=== PATIENT | female | born 1950 | race Caucasian/White ===

== ENCOUNTER → 2021-11-01 00:01 | Outpatient (BNVA) | payer MEDICARE, SELFPAY | PROVIDERS: Visit Provider Emergency Medicine | DX: Z20.822 Contact with and (suspected) exposure to COVID-19 (principal); R26.81 Unsteadiness on feet; J00 Acute nasopharyngitis [common cold]; J40 Bronchitis, not specified as acute or chronic; Z86.73 Personal history of transient ischemic attack (TIA), and cerebral infarction without residual deficits | CPT/HCPCS: 87635 ==

== ENCOUNTER → 2024-03-15 10:23 | Outpatient (BNVA) | payer MEDICARE, SELFPAY | PROVIDERS: PCP Family Medicine; Visit Provider Family Medicine | DX: I10 Essential (primary) hypertension (principal); E78.5 Hyperlipidemia, unspecified | CPT/HCPCS: 80053; 80061; 84443 ==

== ENCOUNTER → 2024-06-07 10:51 | Outpatient (BNVA) | payer MEDICARE, SELFPAY | PROVIDERS: PCP Family Medicine; Visit Provider Family Medicine | DX: Z79.4 Long term (current) use of insulin (principal); E11.9 Type 2 diabetes mellitus without complications; E11.65 Type 2 diabetes mellitus with hyperglycemia | CPT/HCPCS: 82043; 83036 ==

== ENCOUNTER → 2024-08-31 10:17 | Outpatient (BNVA) | payer MEDICARE, SELFPAY | PROVIDERS: PCP Family Medicine; Visit Provider Family Medicine | DX: Z79.4 Long term (current) use of insulin (principal); E11.65 Type 2 diabetes mellitus with hyperglycemia | CPT/HCPCS: 83036 ==

== ENCOUNTER 2024-12-18 11:11 | Emergency (ER) | payer MEDICARE, SELFPAY ==
[2024-12-18 11:16] VITALS: BP 151/87; PULSE 84; RESP 17; TEMP 36.8; O2SAT 96; BMI 26.5
--- OUTSIDE RECORDS SUMMARY | 2024-12-18 11:18 | XMS_ITS | Encounter Summary ---
Author Organization [facility] Address [address] [place] [address] Care Team Providers Care Clinical Documentation Manager Name Role Phone Shannon Mcnair MD Primary Care Provider +1- [phone] Encounter Details Date Type Department Care Team (Latest Contact Info) Description 05/19/2000 Outpatient Historical [facility]- [address] Entrance B, 3rd [place] [phone] Chirag Moreno MD [address] [phone] Female stress incontinence (Primary Dx); Urinary frequency Social History Tobacco Use Types Packs/Day Years Used Date Smoking Tobacco: Never Assessed Comments Unknown Sex and Gender Information Value Date Recorded Sex Assigned at Not on file 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
--- OUTSIDE RECORDS SUMMARY | 2024-12-18 11:18 | XMS_ITS | Encounter Summary ---
Author Organization [facility] Address [address] [facility] Attn: [place] [address] Care Team Providers Care Pastoral Assistant Name Role Phone Shannon Mcnair MD Primary Care Provider +1- [phone] Encounter Details Date Type Department Care Team (Late st Contact Info) Description 05/19/2000 Outpatient Historical Chirag Moreno MD [address] [phone] Social History Tobacco Use Types Packs/Day Years Used Date Smoking Tobacco: Never Assessed Comments Unknown Sex and Gender Information Value Date Recorded Sex Assigned at Not on file 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
--- OUTSIDE RECORDS SUMMARY | 2024-12-18 11:18 | XMS_ITS | Encounter Summary ---
Author Organization [facility] Address [address] [place] [address] Care Team Providers Care Crowning Hammer Operator Name Role Phone Shannon Mcnair MD Primary Care Provider +1- [phone] Encounter Details Date Type Department Care Team (Latest Contact Info) Description 08/20/2002 Outpatient Historical [facility]on Geraldine [address] [place] [address] Non-Staff, Physician NO ADDRESS ON FILE SCREENING MAMM-MAILG NEOPL-OTHER (Primary Dx) Social History Tobacco Use Types Packs/Day Years Used Date Smoking Tobacco: Never Assessed Comments Unknown Sex and Gender Information Value Date Recorded Sex Assigned at Not on file 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
--- OUTSIDE RECORDS SUMMARY | 2024-12-18 11:18 | XMS_ITS | Encounter Summary ---
Author Organization [facility] Address [address] [place] [address] Care Team Providers Care Data Transcriber Name Role Phone Shannon Mcnair MD Primary Care Provider +1- [phone] Encounter Details Date Type Department Care Team (Latest Contact Info) Description 04/25/2000 Outpatient Historical [facility]- [address] Entrance B, 3rd [place] [phone] Chirag Moreno MD [address] [phone] Hematuria (Primary Dx); Mixed incontinence urge and stress (male)(female) Social History Tobacco Use Types Packs/Day Years Used Date Smoking Tobacco: Never Assessed Comments Unknown Sex and Gender Information Value Date Recorded Sex Assigned at Not on file 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
--- OUTSIDE RECORDS SUMMARY | 2024-12-18 11:18 | XMS_ITS | Encounter Summary ---
Author Organization [facility] Address [address] [place] [address] Care Team Providers Care Salvage Inspector Name Role Phone Shannon Mcnair MD Primary Care Provider +1- [phone] Encounter Details Date Type Department Care Team (Latest Contact Info) Description 11/04/2005 Outpatient Historical [facility] [address] 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
--- OUTSIDE RECORDS SUMMARY | 2024-12-18 11:18 | XMS_ITS | Encounter Summary ---
Author Organization [facility] Address [address] [place] [address] Care Team Providers Care Senior Ui Ux Developer Name Role Phone Shannon Mcnair MD Primary Care Provider +1- [phone] Encounter Details Date Type Department Care Team (Latest Contact Info) Description 06/03/2000 Outpatient Historical [facility]- [address] Entrance B, 3rd [place] [address] Chirag Moreno MD [address] [phone] Female stress incontinence (Primary Dx) Social History Tobacco Use Types Packs/Day Years Used Date Smoking Tobacco: Never Assessed Comments Unknown Sex and Gender Information Value Date Recorded Sex Assigned at Not on file 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
--- OUTSIDE RECORDS SUMMARY | 2024-12-18 11:18 | XMS_ITS | Encounter Summary ---
Author Organization [facility] Address [address] [place] [address] Care Team Providers Care Glove Boarder Name Role Phone Shannon Mcnair MD Primary Care Provider +1- [phone] Encounter Details Date Type Department Care Team (Latest Contact Info) Description 10/10/2005 Outpatient Historical [facility] [address] [place] [address] AMBULANCE, [facility] Pain in Soft Tissues of Limb (Primary Dx) Social History Tobacco Use Types Packs/Day Years Used Date Smoking Tobacco: Never Assessed Comments Unknown Sex and Gender Information Value Date Recorded Sex Assigned at Not on file 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
--- OUTSIDE RECORDS SUMMARY | 2024-12-18 11:18 | XMS_ITS | Encounter Summary ---
Author Organization [facility] Address [address] [place] [address] Care Team Providers Care Supervisor Mixing Name Role Phone Shannon Mcnair MD Primary Care Provider +1- [phone] Encounter Details Date Type Department Care Team (Late st Contact Info) Description 02/22/2005 Outpatient Historical [facility] 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
--- OUTSIDE RECORDS SUMMARY | 2024-12-18 11:18 | XMS_ITS | Encounter Summary ---
Author Organization [facility] Address [address] [facility] Attn: [place] [address] Care Team Providers Care Equipment Operat0R Name Role Phone Shannon Mcnair MD Primary Care Provider +1- [phone] Encounter Details Date Type Department Care Team (Late st Contact Info) Description 04/22/2000 Outpatient Historical Amanuel Manning, DO [address] [place] [address] Social History Tobacco Use Types Packs/Day Years Used Date Smoking Tobacco: Never Assessed Comments Unknown Sex and Gender Information Value Date Recorded Sex Assigned at Not on file 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
--- OUTSIDE RECORDS SUMMARY | 2024-12-18 11:18 | XMS_ITS | Encounter Summary ---
Author Organization [facility] Address [address] [place] [address] Care Team Providers Care Associate Accountant Name Role Phone Shannon Mcnair MD Primary Care Provider +1- [phone] Encounter Details Date Type Department Care Team (Latest Contact Info) Description 11/04/2005 Outpatient Historical [facility] [address] [place] [address] AMBULANCE, [facility] Poisoning by Unspecified Drug or Medicinal Substance (Primary Dx) Social History Tobacco Use Types Packs/Day Years Used Date Smoking Tobacco: Never Assessed Comments Unknown Sex and Gender Information Value Date Recorded Sex Assigned at Not on file 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
--- OUTSIDE RECORDS SUMMARY | 2024-12-18 11:18 | XMS_ITS | Encounter Summary ---
Author Organization [facility] Address [address] [place] [address] Care Team Providers Care Priming Machine Operator Name Role Phone Shannon Mcnair MD Primary Care Provider +1- [phone] Encounter Details Date Type Department Care Team (Latest Contact Info) Description 06/17/2005 Outpatient Historical [facility] [address] [place] [address] AMBULANCE, [facility] NAUSEA WITH VOMITING (Primary Dx) Social History Tobacco Use Types Packs/Day Years Used Date Smoking Tobacco: Never Assessed Comments Unknown Sex and Gender Information Value Date Recorded Sex Assigned at Not on file 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
--- OUTSIDE RECORDS SUMMARY | 2024-12-18 11:18 | XMS_ITS | Encounter Summary ---
Author Organization [facility] Address [address] [place] [address] Care Team Providers Care Tobacco Buyer Name Role Phone Shannon Mcnair MD Primary Care Provider +1- [phone] Encounter Details Date Type Department Care Team (Late st Contact Info) Description 06/07/2002 Emergency [facility] Emergency Department [address] [place] [address] Wesley Camacho MD NO ADDRESS ON FILE CHEST PAIN NOS (Primary Dx) Social History Tobacco Use Types Packs/Day Years Used Date Smoking Tobacco: Never Assessed Comments Unknown Sex and Gender Information Value Date Recorded Sex Assigned at Not on file 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
--- OUTSIDE RECORDS SUMMARY | 2024-12-18 11:18 | XMS_ITS | Encounter Summary ---
Author Organization [facility] Address [address] [place] [address] Care Team Providers Care Box Truck Washer Name Role Phone Shannon Mcnair MD Primary Care Provider +1- [phone] Encounter Details Date Type Department Care Team (Late st Contact Info) Description 11/04/2005 Emergency [facility] Emergency Department [facility] [place] [phone] Onofre Gramajo MD [address] [place] [address] Abdominal Pain, Unspecified Site (Primary Dx) Social History Tobacco Use Types Packs/Day Years Used Date Smoking Tobacco: Never Assessed Comments Unknown Sex and Gender Information Value Date Recorded Sex Assigned at Not on file 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 Gender Identity Not on file Sexual Orientation Not on file documented as of this encounter Plan of Treatment Not on file documented as of this encounter Procedures Procedure Name Priority Date/Time Associated Diagnosis Comments LIPASE Routine 11/04/2005 11:23 PM CDT AMYLASE Routine 11/04/2005 11:23 PM CDT COMPREHENSIVE METABOLIC PANEL Routine 11/04/2005 11:23 PM CDT CBC WITH DIFFERENTIAL Routine 11/04/2005 11:22 PM CDT documented in this encounter Results * LIPASE (11/04/2005 11:23 PM CDT) LIPASE 28 6 - 51 U/L INTERFACE SYSTEM Comment: As of 05 the [facility] has changed testing methods. The new reference range is 6-51 The old referance range was 23-300 11/04/2005 11:2 3 PM CDT us Onofre Gramajo MD CHEMISTRY ORDERABLES Final Res ult Performing Organization Address [facility] Phone Number INTERFACE SYSTEM Refer to clinic/hospital department * AMYLASE (11/04/2005 11:23 PM CDT) AMYLASE 54 20 - 104 U/L INTERFACE SYSTEM Comment: As of 05 the [facility] has changed testing methods. The new reference range is 20-104 The old referance range was 30-120 Specimen moderately hemolyzed 11/04/2005 11:2 3 PM CDT us Onofre Gramajo MD CHEMISTRY ORDERABLES Final Res ult Performing Organization Address [facility] Phone Number INTERFACE SYSTEM Refer to clinic/hospital department * (ABNORMAL) COMPREHENSIVE METABOLIC PANEL (11/04/2005 11:23 PM CDT) GLUCOSE 130(H) 70 - 110 mg/dL INTERFACE SYSTEM BUN 10 7 - 17 mg/dL INTERFACE SYSTEM CREATININE 0.6(L) 0.7 - 1.2 mg/dL INTERFACE SYSTEM SODIUM 143 136 - 145 mEq/L INTERFACE SYSTEM POTASSIUM 4.6 3.5 - 5.0 mEq/L INTERFACE SYSTEM Comment:Specimen moderately hemolyzed CHLORIDE 107 95 - 110 mEq/L INTERFACE SYSTEM CO2 24 22 - 32 mmol/l INTERFACE SYSTEM ANION GAP 17 9 - 20 mEq/L INTERFACE SYSTEM OSMOLALITY, CALCULATED 295 275 - 295 mOsm/Kg INTERFACE SYSTEM CALCIUM 9.5 8.4 - 10.5 mg/dL INTERFACE SYSTEM TOTAL PROTEIN 7.9 6.3 - 8.2 g/dL INTERFACE SYSTEM ALBUMIN 4.4 3.5 - 5.0 g/dL INTERFACE SYSTEM GLOBULIN (CALC) 3.5 2.4 - 3.9 g/dL INTERFACE SYSTEM ALBUMIN/GLOBULIN RATIO 1.3 1.0 - 2.3 INTERFACE SYSTEM ALKALINE PHOSPHATASE 124(H) 25 - 100 U/L INTERFACE SYSTEM Comment: As of 05 the [facility] has changed testing methods. The new reference range is 25-100 The old referance range was 38-126 AST 55(H) 8 - 33 U/L INTERFACE SYSTEM Comment: As of 05 the [facility] has changed testing methods. The new reference range is 8-33 The old referance range was Males 17-59 Females 14-36 ALT 35 4 - 36 IU/L INTERFACE SYSTEM Comment: As of 05 the [facility] has changed testing methods. The new reference range is 4-36 The old referance range was Males 21-72 Females 9-52 BILIRUBIN TOTAL 0.3 0.3 - 1.2 mg/dL INTERFACE SYSTEM Comment: As of 05 the [facility] has changed testing methods. The new reference range is 0.3-1.2 The old referance range was 0.2-1.4 11/04/2005 11:2 3 PM CDT us Onofre Gramajo MD CHEMISTRY ORDERABLES Final Res ult INTERFACE SYSTEM Refer to clinic/hospital department * (ABNORMAL) CBC WITH DIFFERENTIAL (11/04/2005 11:22 PM CDT) WBC 8.5 4.8 - 10.8 K/ul INTERFACE SYSTEM RBC 4.33 4.20 - 5.40 Mil/ul INTERFACE SYSTEM HEMOGLOBIN 14.2 12.0 - 16.0 g/dL INTERFACE SYSTEM HEMATOCRIT 40.9 36.0 - 46.0 % INTERFACE SYSTEM MCV 94.5 84.0 - 103.0 Fl INTERFACE SYSTEM MCH 32.8 27.0 - 34.0 pg INTERFACE SYSTEM MCHC 34.7 30.0 - 35.0 g/dL INTERFACE SYSTEM RDW 12.2 11.0 - 14.5 % INTERFACE SYSTEM PLATELETS 381 140 - 440 K/ul INTERFACE SYSTEM MPV 9.3 8.9 - 12.8 Fl INTERFACE SYSTEM NEUTROPHILS 82.1(H) 42.2 - 75.2 % INTERFACE SYSTEM LYMPHOCYTES 12.9(L) 24.0 - 44.0 % INTERFACE SYSTEM MONOCYTES 4.6 2.0 - 10.0 % INTERFACE SYSTEM EOSINOPHILS 0.2 0.0 - 7.0 % INTERFACE SYSTEM BASOPHILS 0.2 0.0 - 1.0 % INTERFACE SYSTEM NEUTROPHIL ABSOLUTE 7.0 2.0 - 8.0 K/uL INTERFACE SYSTEM LYMPHOCYTE ABSOLUTE 1.1(L) 1.2 - 4.0 K/ul INTERFACE SYSTEM MONOCYTE ABSOLUTE 0.4 0.1 - 0.6 K/ul INTERFACE SYSTEM EOSINOPHIL ABSOLUTE 0.0 0.0 - 0.7 K/ul INTERFACE SYSTEM BASOPHILS ABSOLUTE 0.0 0.0 - 0.2 K/ul INTERFACE SYSTEM 11/04/2005 11:2 2 PM CDT us Onofre Gramajo MD HEMATOLOGY ORDERABLES Final Re sult INTERFACE SYSTEM Refer to clinic/hospital department documented in this encounter Visit Diagnoses Diagnosis Abdominal pain, unspecified site- Primary documented in this encounter Care Teams Box Truck Washer Relationship Specialty Start Date End Date Shannon Mcnair MD [address] [place] [address] PCP - General Family Practice 06/11/10 documented as of this encounter
--- OUTSIDE RECORDS SUMMARY | 2024-12-18 11:18 | XMS_ITS | Encounter Summary ---
Author Organization [facility] Address [address] [facility] Attn: [place] [address] Care Team Providers Care Shank Breaker Name Role Phone Shannon Mcnair MD Primary Care Provider +1- [phone] Encounter Details Date Type Department Care Team (Late st Contact Info) Description 05/23/2000 Inpatient Historical Chirag Moreno MD [address] [phone] Social History Tobacco Use Types Packs/Day Years Used Date Smoking Tobacco: Never Assessed Comments Unknown Sex and Gender Information Value Date Recorded Sex Assigned at Not on file 

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
--- OUTSIDE RECORDS SUMMARY | 2024-12-18 11:18 | XMS_ITS | Encounter Summary ---
Author Organization [facility] Address [address] [place] [address] Care Team Providers Care Roll Plugger Machine Operator Name Role Phone Shannon Mcnair MD Primary Care Provider [phone]- [phone] Encounter Details Date Type Department Care Team (Latest Contact Info) Description 06/27/2004 Outpatient Historical [facility] [address] [place] [address] AMBULANCE, [facility] CHEST PAIN NOS (Primary Dx) Social History Tobacco Use Types Packs/Day Years Used Date Smoking Tobacco: Never Assessed Comments Unknown Sex and Gender Information Value Date Recorded Sex Assigned at Not on file Legal Sex Female 6:46 AM DEVELOPMENT ADVISOR Gender Identity Not on file Sexual Orientation Not on file documented as of this encounter Plan of Treatment Not on file documented as of this encounter Visit Diagnoses Diagnosis Chest pain, unspecified- Primary documented in this encounter Care Teams Roll Plugger Machine Operator Relationship Specialty Start Date End Date Shannon Mcnair MD [address] [place] [address] PCP - General Family Practice 06/11/10 documented as of this encounter
--- OUTSIDE RECORDS SUMMARY | 2024-12-18 11:18 | XMS_ITS | Encounter Summary ---
Author Organization [facility] Address [address] [place] [address] Care Team Providers Care Operation Research Analyst Name Role Phone Shannon Mcnair MD Primary Care Provider [phone] Encounter Details Date Type Department Care Team (Late st Contact Info) Description 12/14/2024 External Device Data ST[place] ABSTRACTION Provider, Abstract NO ADDRESS ON FILE Social History Tobacco Use Types Packs/Day Years Used Date Smoking Tobacco: Never Alcohol Use Standard Drinks/Week Comments No 0 (1 standard drink = 0.6 oz pur e alcohol) Comments No Sex and Gender Information Value Date Recorded Sex Assigned at Not on file Legal Sex Female 1:48 PM HIGH SCHOOL ACADEMIC COACH Gender Identity Not on file Sexual Orientation Not on file documented as of this encounter Plan of Treatment Upcoming Encounters Date Type Department Care Team (Late st Contact Info) Description 04/06/2025 9:20 AM HIGH SCHOOL ACADEMIC COACH Office Visit [facility] Rheumatology- [place] [address] [place] [address] Matt Cortes MD [address] [place] [phone] documented as of this encounter Visit Diagnoses Not on filedocumented in this encounter Care Teams Operation Research Analyst Relationship Specialty Start Date End Date Shannon Mcnair MD [address] [place] [address] PCP - General 07/27/20 documented as of this encounter
--- OUTSIDE RECORDS SUMMARY | 2024-12-18 11:18 | XMS_ITS | Encounter Summary ---
Author Organization [facility] Address [address] [place] [address] Care Team Providers Care Resolution Rep Name Role Phone Shannon Mcnair MD Primary Care Provider [phone] Encounter Details Date Type Department Care Team (Latest Contact Info) Description 09/06/2006 Outpatient Historical [facility] Ambulance [address] [place] [address] AMBULANCE, [facility] Unspecified Essential Hypertension (Primary Dx) Social History Tobacco Use Types Packs/Day Years Used Date Smoking Tobacco: Never Assessed Comments Unknown Sex and Gender Information Value Date Recorded Sex Assigned at Not on file Legal Sex Female 6:46 AM JOCKEY'S AGENT Gender Identity Not on file Sexual Orientation Not on file documented as of this encounter Plan of Treatment Not on file documented as of this encounter Visit Diagnoses Diagnosis Unspecified essential hypertension- Primary documented in this encounter Care Teams Resolution Rep Relationship Specialty Start Date End Date Shannon Mcnair MD [address] [place] [address] PCP - General Family Practice 06/11/10 documented as of this encounter
--- OUTSIDE RECORDS SUMMARY | 2024-12-18 11:18 | XMS_ITS | Encounter Summary ---
Author Organization [facility] Address [address] [place] [address] Care Team Providers Care Cane Piler Name Role Phone Shannon Mcnair MD Primary Care Provider [phone] Encounter Details Date Type Department Care Team (Latest Contact Info) Description 08/20/2002 Outpatient Historical [facility] [place] [address] [place] [address] Carlton Gee MD NO ADDRESS ON FILE SCREENING MAMM-MAILG NEOPL-OTHER (Primary Dx) Social History Tobacco Use Types Packs/Day Years Used Date Smoking Tobacco: Never Assessed Comments Unknown Sex and Gender Information Value Date Recorded Sex Assigned at Not on file Legal Sex Female 6:46 AM SALES AND OPERATIONS TRAINEE Gender Identity Not on file Sexual Orientation Not on file documented as of this encounter Plan of Treatment Not on file documented as of this encounter Visit Diagnoses Diagnosis Other screening mammogram- Primary documented in this encounter Care Teams Cane Piler Relationship Specialty Start Date End Date Shannon Mcnair MD [address] [place] [address] PCP - General Family Practice 06/11/10 documented as of this encounter
--- OUTSIDE RECORDS SUMMARY | 2024-12-18 11:18 | XMS_ITS | Encounter Summary ---
Author Organization [facility] Address [address] [place] [address] Care Team Providers Care Educational Guidance Counselor Name Role Phone Shannon Mcnair MD Primary Care Provider [phone] Encounter Details Date Type Department Care Team (Latest Contact Info) Description 07/14/2000 Outpatient Historical [facility] Urology- [address]tr[address], 3[address] [place] [address] Chirag Moreno MD [address] [address] Mixed incontinence urge and stress (male)(female) (Primary Dx) Social History Tobacco Use Types Packs/Day Years Used Date Smoking Tobacco: Never Assessed Comments Unknown Sex and Gender Information Value Date Recorded Sex Assigned at Not on file Legal Sex Female 6:46 AM GAS PLANT OPERATOR Gender Identity Not on file Sexual Orientation Not on file documented as of this encounter Plan of Treatment Not on file documented as of this encounter Visit Diagnoses Diagnosis Mixed incontinence urge and stress (male)(female)- Primary documented in this encounter Care Teams Educational Guidance Counselor Relationship Specialty Start Date End Date Shannon Mcnair MD [address] [place] [address] PCP - General Family Practice 06/11/10 documented as of this encounter
--- OUTSIDE RECORDS SUMMARY | 2024-12-18 11:18 | XMS_ITS | Encounter Summary ---
Author Organization [facility] Address [address] [place] [address] Care Team Providers Care Fitness Specialist Name Role Phone Shannon Mcnair MD Primary Care Provider [phone] Encounter Details Date Type Department Care Team (Latest Contact Info) Description 05/26/2000 Outpatient Historical [facility] Urology- [address]tr[address], 3rd [place] [address] Chirag Moreno MD [address] [phone] Female stress incontinence (Primary Dx) Social History Tobacco Use Types Packs/Day Years Used Date Smoking Tobacco: Never Assessed Comments Unknown Sex and Gender Information Value Date Recorded Sex Assigned at Not on file Legal Sex Female 6:46 AM SPIN TABLE OPERATOR Gender Identity Not on file Sexual Orientation Not on file documented as of this encounter Plan of Treatment Not on file documented as of this encounter Visit Diagnoses Diagnosis Female stress incontinence- Primary documented in this encounter Care Teams Fitness Specialist Relationship Specialty Start Date End Date Shannon Mcnair MD [address] [place] [address] PCP - General Family Practice 06/11/10 documented as of this encounter
--- OUTSIDE RECORDS SUMMARY | 2024-12-18 11:18 | XMS_ITS | Clinical Summary ---
Author Organization [facility] Address [address] [place] [address] Care Team Providers Care Account Specialist Name Role Phone Shannon Mcnair MD Primary Care Provider [phone]- [phone] Allergies Active Allergy Reactions Criticality Noted Date Comments Codeine Nausea and Vomiting Low 02/08/2011 Iodinated Contrast Media Other (See Comments) 03/26/2018 Per pt she can't remember what type or reaction Medications diclofenac sodium (VOLTAREN) 1 % gel Apply 2 Grams to affected area 4 times daily. 200 Gram 1 9 Active folic acid (FOLVITE) 1 mg tablet Take 1 tablet by mouth once daily 90 Tablet 0 1 Active aspirin (FLORENTINO CHEWABLE) 81 mg Tablet, Chewable Take 1 Tablet (81 mg) by mouth daily with breakfast. 90 Tablet 2 Active lisinopriL (PRINIVIL) 10 mg tablet 8 Active atorvastatin (LIPITOR) 40 mg tablet 8 Active glimepiride (AMARYL) 4 mg tablet 8 Active metoprolol succinate (TOPROL XL) 100 mg Extended Release 24 hour tablet 8 Active aspirin (ECOTRIN EC) 81 mg Tablet, Delayed Release (E.C.) Take 81 mg by mouth daily. 8 Active insulin aspart (NovoLOG) 100 unit/mL injection Inject 40 Units by subcutaneous injection daily. Active traMADoL (ULTRAM) 50 mg tabletIndicatio ns:Inflammatory arthritis Take 1 Tablet (50 mg) by mouth 1 time daily as needed for Pain. 30 Tablet 4 Active insulin degludec (Tresiba FlexTouch U-100) 100 unit/mL pen syringe Inject 40 Units by subcutaneous injection daily at bedtime. Active methotrexate (RHEUMATREX) 2.5 mg Tablet TAKE 5 TABLETS BY MOUTH ONCE A WEEK 20 Tablet 2 5 Active ondansetron (ZOFRAN ODT) 4 mg Tablet, Rapid Dissolve Take 1 Tablet (4 mg) by mouth every 8 hours as needed for Nausea/Emesis. Dissolve tablet on top of tongue, then swallow with saliva. 21 Tablet 5 Active Active Problems Problem Noted Date Diagnosed Date Acute cystitis 09/06/2021 Suspected cerebrovascular accident (CVA) 022 Type 2 diabetes mellitus wit hout complication, without long-term current use of insulin 03/26/2018 Spondyloarthropathy 06/11/2010 Overview (08/17/2020): Episodes of painful dactylitis of the toes, monoarticular arthritis predominant in feet (except right #2-3 MCPs), left Achilles, left heel and ? sacroiliac jts. Resolved Problems Problem Noted Date Diagnosed Date Resolved Date Medication monitoring encoun ter (Sulfasalazine) 06/11/2010 06/01/2018 Encounters Date Type Department Care Team Description 12/14/2024 External Device Data STL ABSTRACTION Provider, Abstract 11/24/2024 External Device Data STL ABSTRACTION Provider, Abstract 11/09/2024 External Device Data [facility] ABSTRACTION Provider, Abstract 11/09/2024 External Device Data ST[facility] ABSTRACTION Provider, Abstract 09/21/2024 External Device Data STL ABSTRACTION Provider, Abstract from Last 3 Months Immunizations Immunization Administration Dates Next Due (PREVNAR 13)(6 WKS UP) PNEUM OCOCCAL CONJUGATE (PCV13) 0.5 ML, IM 03/21/2010 (SPIKEVAX) (12 YRS UP PRIMAR Y SERIES) COVID-19 VACCINE - MRNA-[id number](PF) 100 MCG/0.5 ML IM SUSP 07/20/2020,06/22/2020 Influenza Seasonal Unspecified Formulation IM ,02/02/2010 Family History Medical History Relation Name Comments Healthy Brother 1 Healthy Brother 2 Healthy Daughter Colon Cancer Mother Heart Disease Mother Healthy Sister Relation Name Status Comments Brother 1 Alive Brother 2 Alive Daughter Alive Father Mother Alive Sister Alive Social History Tobacco Use Types Packs/Day Years Used Date Smoking Tobacco: Never Tobacco Cessation:Counseling Given: Not Answered Alcohol Use Standard Drinks/Week Comments No 0 (1 standard drink = 0.6 oz pur e alcohol) Comments No Sex and Gender Information Value Date Recorded Sex Assigned at Not on file Legal Sex Female 1:48 PM CLASSROOM ASSISTANT Gender Identity Not on file Sexual Orientation Not on file Last Filed Vital Signs Vital Sign Reading Time Taken Comments Blood Pressure 168/98 08/13/2024 8:30 PM CDT Pulse 96 08/13/2024 8:30 PM CDT Temperature 36.3 C (97.4 F) 08/13/2024 7:10 PM CDT Respiratory Rate 20 08/13/2024 8:30 PM CDT Oxygen Saturation 93% 08/13/2024 8:30 PM CDT Inhaled Oxygen Concentration - - Weight 65.8 kg (145 lb) 08/13/2024 7:10 PM CDT Height 165.1 cm (5' 5 ) 08/13/2024 7:10 PM CDT Body Mass Index 24.13 08/13/2024 7:10 PM CDT Plan of Treatment Upcoming Encounters Date Type Department Care Team (Late st Contact Info) Description 04/06/2025 9:20 AM CLASSROOM ASSISTANT Office Visit [facility] Rheumatology- [place] [address] [place] [phone] Matt Cortes MD [address] [facility] [address] [place] [phone] Health Maintenance Due Date Last Done Comments DIABETES ANNUAL FOOT EXAM 1968 DIABETES ANNUAL RETINAL EXAM 1968 DIABETES MICROALBUMIN ANNUAL SCREEN 1968 DTAP/TDAP/TD VACCINES (1 - Tdap) 1969 BREAST CANCER SCREENING 1990 COLORECTAL SCREENING 11/01/1995 Colorectal Cancer Screening 11/01/1995 FIT-DNA Q 3 years 11/01/1995 FIT/FOBT Q 1 year 11/01/1995 Flex Sig/CT Colonography Q 5 years 11/01/1995 ZOSTER VACCINE (1 of 2) 2000 RSV VACCINE (60+ or ) (1 - Risk 60-74 years 1-dose series) 2010 OSTEOPOROSIS SCREENING 11/01/2015 LDL CHOLESTEROL ANNUAL 09/05/2022 09/05/2021 DIABETES HBA1C Q 6 MONTHS 05/24/20232022, 09/05/2021, 09/05/2021 COVID-19 Vaccine ( season) 2023 05/03/2021, 07/20/2020, 06/22/2020 INFLUENZA VACCINE (#1) 2024 01/19/2021, 2009 PNEUMOCOCCAL VACCINE 50+ YEARS Completed 11/21/2022 , 03/21/2010 Procedures Procedure Name Priority Date/Time Associated Diagnosis Comments LIPID PANEL Routine 09/05/2021 7:39 PM CDT HEMOGLOBIN A1C Stat 09/05/2021 7:39 PM CDT from Last 3 Months or Most Recently Relevant to Health Maintenance Results * (ABNORMAL) HEMOGLOBIN A1C (09/05/2021 7:39 PM CDT) HEMOGLOBIN A1C 6.6(H) <=5.6 % 09/07/2021 7:17 AM CDT [facility] Spare Backup [facility] EST. AVG GLUCOSE, A1C 143 mg/dL 09/07/2021 7:17 AM CDT [facility] Blood Venipuncture / Unknown 09/05/2021 7:39 PM CDT 09/05/2021 7:44 PM CDT Narrative [facility] Spare Backup [facility] - 09/07/2021 7:17 AM CDT HGB A1C INTERPRETATION NORMAL: <5.7% PRE-DIABETES: 5.7 - 6.4% DIABETES: 6.5% OR GREATER us vIory Luque MD CHEMISTRY ORDERABLES Final Resu lt [facility] CLIA # [id number] [facility] [address] [place] [address] * (ABNORMAL) LIPID PANEL (09/05/2021 7:39 PM CDT) CHOLESTEROL 144 <200 mg/dL 09/06/2021 11:22 AM T [facility] TRIGLYCERIDE 36 <150 mg/dL 09/06/2021 11:22 AM T [facility] HDL 84(H) 40 - 59 mg/dL 09/06/2021 11:22 AM T [facility] LDL CALCULATED 53 <100 mg/dL 09/06/2021 11:22 AM T [facility] NON-HDL CHOLESTEROL 60 <130 mg/dL 09/06/2021 11:22 AM T [facility] Blood Venipuncture / Unknown 09/05/2021 7:39 PM CDT 09/05/2021 7:47 PM CDT Narrative [facility] - 09/06/2021 11:22 AM CDT TOTAL CHOLESTEROL mg/dL Desirable <200 Borderline high 200-239 High >=240 TRIGLYCERIDES mg/dL Normal <150 Borderline high 150-199 High 200-499 Very high >=500 HDL CHOLESTEROL mg/dL Low <40 Normal 40-59 Desirable >=60 NON HDL CHOLESTEROL mg/dL Optimal <130 Near Optimal 130-159 Borderline High 160-189 Very High >=190 CALCULATED LDL mg/dL LDL <70, OPTIMAL if have Atherosclerotic cardiovascular disease (ASCVD) or intermediate or higher (>7.5%) 10 year risk of ASCVD including most adults with diabetes. LDL <100, Optimal in adult patients with low (<7.5%) 10 year ASCVD risk LDL 100-160, Suboptimal LDL >160, High LDL >190, Very high ATPIII Guidelines Reference Ranges for Lipid Panels (NCEP/AMA) . us Ivory Luque MD CHEMISTRY ORDERABLES Final Resu lt [facility] CLIA # [id number] [address] [place] [address] [place] [address] from Last 3 Months or Most Recently Relevant to Health Maintenance Insurance [facility] MEDICARE HMO Advance Directives For more information, please contact: [phone] * Default Full Code - Needs Discussion (Latest Code Status on File) Date Activated Date Inactivated Comments 09/06/2021 5:46 AM 09/07/2021 7:46 PM Care Teams Account Specialist Relationship Specialty Start Date End Date Shannon Mcnair MD [address] [place] [address] PCP - General 07/27/20
--- OUTSIDE RECORDS SUMMARY | 2024-12-18 11:18 | XMS_ITS | Encounter Summary ---
Author Organization [facility] Address [address] [place] [address] Care Team Providers Care Dry Cleaner Name Role Phone Shannon Mcnair MD Primary Care Provider [phone]- [phone] Encounter Details Date Type Department Care Team (Latest Contact Info) Description 06/17/2005 Outpatient Historical [facility] Ambulance [address] [place] [address] AMBULANCE, [facility] HYPERVENTILATION (Primary Dx) Social History Tobacco Use Types Packs/Day Years Used Date Smoking Tobacco: Never Assessed Comments Unknown Sex and Gender Information Value Date Recorded Sex Assigned at Not on file Legal Sex Female 6:46 AM CRIMINALIST TECHNICIAN Gender Identity Not on file Sexual Orientation Not on file documented as of this encounter Plan of Treatment Not on file documented as of this encounter Visit Diagnoses Diagnosis Hyperventilation- Primary documented in this encounter Care Teams Dry Cleaner Relationship Specialty Start Date End Date Shannon Mcnair MD [address] [place] [address] PCP - General Family Practice 06/11/10 documented as of this encounter
--- OUTSIDE RECORDS SUMMARY | 2024-12-18 11:18 | XMS_ITS | Encounter Summary ---
Author Organization [facility] Address [address] [facility] Attn: Epic Prelude ADT [place] [address] Care Team Providers Care Waterproof Coating Machine Tender Name Role Phone Shannon Mcnair MD Primary Care Provider +1- [phone] Encounter Details Date Type Department Care Team (Latest Contact Info) Description 04/23/2001 Emergency Chirag Huynh MD NO ADDRESS ON FILE Social History Tobacco Use Types Packs/Day Years Used Date Smoking Tobacco: Never Assessed Comments Unknown Sex and Gender Information Value Date Recorded Sex Assigned at Not on file Legal Sex Female 6:46 AM AIRCRAFT LAUNCH AND RECOVERY TECHNICIAN Gender Identity Not on file Sexual Orientation Not on file documented as of this encounter Plan of Treatment Not on file documented as of this encounter Visit Diagnoses Not on filedocumented in this encounter Care Teams Waterproof Coating Machine Tender Relationship Specialty Start Date End Date Shannon Mcnair MD [address] [place] [address] PCP - General Family Practice 06/11/10 documented as of this encounter
[2024-12-18 11:39] LABS: Glucose Urine UA 1+ (Normal); Nitrate Urine Positive (Negative); Specific Gravity, Urine 1.019 (1.005-1.030)
[2024-12-18 11:43] LABS: Add Urine Microscopic? YES
[2024-12-18] MEDS: orphenadrine 30 mg/mL Inj 2 mL 60 MG IM (11:51)
[2024-12-18 11:54] LABS: Hematocrit 42.6 % (36-47); Hemoglobin 14.20 g/dL (11.27-16.99); Mean Corpuscular HGB Conc 33.3 g/dL (30-55); Mean Corpuscular Hemoglobin 31.6 pg (27-33); Mean Corpuscular Volume 94.7 fl (85-98); Nucleated Red Blood Cells % 0 %; Platelet Count 184 10^3/cmm (157-399); Red Blood Count 4.50 10^6/uL (3.85-5.65); White Blood Count 5.74 10^3/uL (3.29-11.43)
[2024-12-18 12:00] VITALS: BP 151/87; PULSE 80; O2SAT 94
[2024-12-18 12:10] LABS: Anion Gap 15.5 (5-19); Blood Urea Nitrogen 9 mg/dL (8-23); Calcium 9.3 mg/dL (8.5-10.5); Carbon Dioxide 23 mmol/L (22-29); Chloride 103 mmol/L (98-107); Creatinine Clr Calc Pharmacy 54.9005; Glucose 200 mg/dL (65-115); Osmolality Calculated 290 mOsm/kg (285-295); Potassium 3.5 mmol/L (3.5-5.1); Sodium 138 mmol/L (136-145)
[2024-12-18] MEDS: cefTRIAXone 1,000 MG in water for injection-sterile 2.1 ML 2.1 MG IM (13:01)
[2024-12-18] MEDS: HYDROcodone-acetaminophen 5-325 mg Tablet 1 TAB PO (13:22)
--- NOTE | 2024-12-18 13:22 | W.ED.BACK ---
HPI - Back Pain/Injury General: Chief Complaint: Back Pain/Injury Stated Complaint: low back pain Time Seen by Provider: 12/18/24 11:22 Source: patient and family Mode of arrival: ambulatory Limitations: no limitations History of Present Illness: Left of back pain starting this morning. Patient very uncomfortable, unable to sit still in the car. Mainly hurts in the left low back little bit of tenderness over the lateral left trochanter Related Data Home Medications ?Medication ?Instructions ?Recorded ?Confirmed folic acid 1 mg tablet 1 mg PO DAILY 10/31/21 08/31/24 acyclovir 400 mg tablet 400 mg PO DAILY 02/12/24 08/31/24 aspirin 81 mg tablet,delayed 81 mg PO DAILY 02/12/24 08/31/24 release methotrexate sodium 5 mg tablet 25 mg PO .weekly 02/12/24 08/31/24 tramadol 50 mg tablet 50 mg PO DAILY 02/12/24 08/31/24 Previous Rx's ?Medication ?Instructions ?Recorded blood sugar diagnostic (Accu-Chek #100 ea 02/12/24 Guide test strips) lancets (Accu-Chek Softclix #100 ea 02/12/24 Lancets) pen needle, diabetic 32 gauge x #100 ea 02/12/24 (BD Elana 2nd Gen Pen Needle) dulaglutide 0.75 mg/0.5 mL 0.75 mg (0.5 mL) SUBCUT .qw #2 mL 06/07/24 subcutaneous pen injector (Trulicity) atorvastatin 40 mg tablet 40 mg PO DAILY #90 tabs 08/31/24 dulaglutide 1.5 mg/0.5 mL 1.5 mg (0.5 mL) SUBCUT .qw #2 mL 08/31/24 subcutaneous pen injector (Trulicity) glimepiride 2 mg tablet 4 mg (2 x 2 mg) PO BID #180 tabs 08/31/24 hydrochlorothiazide 12.5 mg tablet 12.5 mg PO DAILY #90 tabs 08/31/24 insulin degludec 100 unit/mL (3 40 unit (0.4 mL) SUBCUT DAILY #45 08/31/24 mL) subcutaneous pen (Tresiba mL FlexTouch U-100 insulin) metoprolol succinate 25 mg 25 mg PO DAILY #90 tabs 05/13/25 tablet,extended release 24 hr omeprazole 20 mg capsule,delayed 20 mg PO DAILY #90 caps 08/31/24 release baclofen 10 mg tablet 10 mg PO BID 5 days #10 tabs 12/18/24 nitrofurantoin 100 mg PO BID 5 days #10 caps 12/18/24 monohydrate/macrocrystals 100 mg capsule (Macrobid) phenazopyridine 100 mg tablet 100 mg PO Q8H PRN bladder spasms 2 12/18/24 days #6 tabs Allergies Allergy/AdvReac Type Severity Reaction Status Date / Time Penicillins Allergy Intermediate unknown Verified 08/31/24 09:37 Iodinated Contrast Media Allergy ALGY-Rash Verified 10/25/24 09:29 Review of Systems General: Reports: 10 or more systems reviewed and unremarkable except in HPI and below PFSH ED PFSH: Medical History (Updated 12/18/24 @ 13:23 by Bola Pena MD) Fibromyalgia Type 2 diabetes mellitus, with long-term current use of insulin Diabetes type 2, uncontrolled Rheumatoid arthritis sees [facility] rheumatology GERD without esophagitis Hx of completed stroke Left MCA territory on MRI Expressive aphasia Hyperlipidemia LDL goal <70 Hypertension, essential Uncontrolled type 2 diabetes mellitus, with long-term current use of insulin Unsteady gait Surgical History History of bladder suspension procedure Hx of cholecystectomy Hx of colonoscopy 8.5.24--tubular adenoma; f/u Q5yrs as mother had colon CA Hx of appendectomy Hx of hysterectomy with BSO--had cysts on ovaries Family History Father No problems noted. 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 Physical Exam Const: COMMON NORMALS: no acute distress, average body habitus, patient oriented x3, healthy appearing, alert and well nourished GENERAL APPEARANCE: well kempt and well developed HENMT: COMMON NORMALS: normocephalic, atraumatic, external ears normal and moist oral mucous membranes HEAD & SCALP: normocephalic and atraumatic EXTERNAL EAR: Yes external ears normal Eye: COMMON NORMALS: Equal, round and reactive pupils present, EOMs intact bilaterally and conjunctivae normal CONJUNCTIVA: Yes conjunctivae normal PUPIL: Yes Equal, round and reactive pupils present Neck/C-Spine: COMMON NORMALS: full ROM, no lymphadenopathy and supple Chest: CHEST: Yes Symmetrical chest wall rise and No Surgical scars present (Chest) Resp: COMMON NORMALS: normal respiratory effort, No retractions, No use of accessory muscles and clear to auscultation bilaterally AUSCULTATION: clear to auscultation bilaterally Cardio: COMMON NORMALS: regular rate, regular rhythm, S1 normal heart sound present, S2 normal heart sound present, No gallops present (Cardio), No clicks present (Cardio), No murmurs present (Cardio) and No rub (Cardio) RATE: regular rate RHYTHM: regular rhythm HEART SOUNDS: S1 normal heart sound present, S2 normal heart sound present and no murmurs PERIPHERAL PULSES: other (Radial pulses 2+ and symmetric) GI: COMMON NORMALS: Soft to palpation, non-tender and no masses INSPECTION: No abdominal distension PALPATION: Yes Soft to palpation, No Guarding due to palpation present (GI) and No Rebound tenderness present : COMMON NORMALS: Yes no CVA tenderness BLADDER/KIDNEY EXAM: Yes no CVA tenderness Back/Pelvis: COMMON NORMALS: no CVA tenderness Extremity: COMMON NORMALS: normal to inspection, full ROM, capillary refill normal and no clubbing, cyanosis or edema NARRATIVE EXTREMITY EXAM: Left lower back tenderness no midline tenderness no weakness. No pain with internal/external rotation of the hip. Some mild tenderness over the lateral surface of the left greater trochanter. No guarding on exam but patient reports a greater amount of tenderness in the musculoskeletal soft tissues of the left low back Neuro: COMMON NORMALS: patient oriented x3 SENSORIUM/ORIENTATION: Yes alert Psych: APPEARANCE: Yes well kempt Skin: COMMON NORMALS: no rashes or lesions noted, no wounds, turgor normal and no jaundice GENERAL SKIN EXAM: no rashes or lesions noted and turgor normal Course Vital Signs: Vital signs: Vital Signs Temperature 98.2 F 08/30/25 11:16 Pulse Rate 80 08/30/25 12:00 Respiratory Rate 17 12/18/24 11:16 Blood Pressure 151/87 12/18/24 12:00 Pulse Oximetry 94 12/18/24 12:00 Oxygen Delivery Me thod Room Air 12/18/24 12:00 MDM - Back Pain/Injury Medical Decision Making Patient with left lower back pain rating to the hip and down to the knee. Has very mild tenderness over the lateral bursal area of the trochanter. More left low back tenderness when pressed. However not much guarding. CBC and BMP are unremarkable however patient does have UA with nitrites and 4+ bacteria. It was a dirty catch however 4+ bacteria is still excessive despite this. Patient will be treated for UTI and musculoskeletal pain. Medical Records I reviewed the patient's medical records. Labs I reviewed the patient's lab results. 12/18/24 11:49 12/18/24 11:49 Laboratory Results WBC 5.74 10^3/uL (3.29-11.43) 12/18/24 11:49 RBC 4.50 10^6/uL (3.85-5.65) 12/18/24 11:49 Hgb 14.20 g/dL (11.27-16.99) 12/18/24 11:49 Hct 42.6 % (36-47) 12/18/24 11:49 MCV 94.7 fl (85-98) 12/18/24 11:49 MCH 31.6 pg (27-33) 12/18/24 11:49 MCHC 33.3 g/dL (30-55) 12/18/24 11:49 RDW 12.5 % (12.1-15.1) 12/18/24 11:49 Plt Count 184 10^3/cmm (157-399) 12/18/24 11:49 MPV 10.0 fL (7.4-10.4) 12/18/24 11:49 Neut % (Auto) 67.2 % 12/18/24 11:49 Lymph % (Auto) 25.6 % 12/18/24 11:49 Henry % (Auto) 5.6 % 12/18/24 11:49 Eos % (Auto) 0.9 % 12/18/24 11:49 Baso % (Auto) 0.5 % 12/18/24 11:49 Neut # (Auto) 3.86 10^3/uL (1.8-7.7) 12/18/24 11:49 Lymph # (Auto) 1.5 10^3/uL (0.8-4.8) 12/18/24 11:49 Henry # (Auto) 0.3 10^3/uL (0.2-0.9) 12/18/24 11:49 Eos # (Auto) 0.1 10^3/uL (0.0-0.8) 12/18/24 11:49 Baso # (Auto) 0.0 10^3/uL (0.0-0.1) 12/18/24 11:49 Nucleated RBC % (auto) 0 % 12/18/24 11:49 Nucleated RBCs # 0.0 /100WBC 12/18/24 11:49 Sodium 138 mmol/L (136-145) 12/18/24 11:49 Potassium 3.5 mmol/L (3.5-5.1) 12/18/24 11:49 Chloride 103 mmol/L (98-107) 12/18/24 11:49 Carbon Dioxide 23 mmol/L (22-29) 12/18/24 11:49 Anion Gap 15.5 (5-19) 12/18/24 11:49 BUN 9 mg/dL (8-23) 12/18/24 11:49 Creatinine 0.5 mg/dL (0.5-0.9) 12/18/24 11:49 GFR Calculation Not Reportable 12/18/24 11:49 Glucose 200 mg/dL (65-115) H 12/18/24 11:49 Calculated Osmolality 290 mOsm/kg (285-295) 12/18/24 11:49 Calcium 9.3 mg/dL (8.5-10.5) 12/18/24 11:49 Urine Color [place] (Yellow) A 12/18/24 11:28 Urine Appearance Cloudy (CLEAR) A 12/18/24 11:28 Urine pH 5.0 (5-7) 12/18/24 11:28 Ur Specific [place] 1.019 (1.005-1.030) 12/18/24 11:28 Urine Protein Negative (Negative) 12/18/24 11:28 Urine Glucose (UA) 1+ (Normal) H 12/18/24 11:28 Urine Ketones Negative (Negative) 12/18/24 11:28 Urine Blood Negative (Negative) 12/18/24 11:28 Urine Nitrate Positive (Negative) A 12/18/24 11:28 Urine Bilirubin Negative (Negative) 12/18/24 11:28 Urine Urobilinogen 1.0 mg/dL (Negative) 12/18/24 11:28 Ur Leukocyte Esterase Trace (Negative) A 12/18/24 11:28 Urine RBC 6-10 /hpf (0-2) 12/18/24 11:28 Urine WBC 11-20 /hpf (0-5) H 12/18/24 11:28 Ur Squamous Epith Cells 11-20 /hpf (0-5) H 12/18/24 11:28 Amorphous Sediment Not Reportable 12/18/24 11:28 Urine Bacteria 4+ /hpf (NONE) H 12/18/24 11:28 Hyaline Casts 0.40 /lpf 12/18/24 11:28 No radiology studies performed this visit Discharge Plan Discharge Patient Disposition: Home Clinical Impression: Acute lower UTI, Acute left-sided low back pain Condition: Stable Prescriptions: New nitrofurantoin monohyd/m-cryst [Macrobid] 100 mg capsule 100 mg PO BID 5 Days Qty: 10 0RF Rx Instructions: must administer with a meal/food phenazopyridine 100 mg tablet 100 mg PO Q8H PRN (Reason: bladder spasms) 2 Days Qty: 6 0RF baclofen 10 mg tablet 10 mg PO BID 5 Days Qty: 10 0RF No Action folic acid 1 mg tablet 1 mg PO DAILY Trulicity 1.5 mg/0.5 mL pen injector 1.5 mg SUBCUT .qw Qty: 2 5RF glimepiride 2 mg tablet 4 mg PO BID Qty: 180 1RF hydrochlorothiazide 12.5 mg tablet 12.5 mg PO DAILY Qty: 90 3RF insulin degludec [Tresiba FlexTouch U-100] 100 unit/mL (3 mL) insulin pen 40 unit SUBCUT DAILY Qty: 45 5RF metoprolol succinate 25 mg tablet extended release 24 hr 25 mg PO DAILY Qty: 90 3RF omeprazole 20 mg capsule,delayed release(DR/EC) 20 mg PO DAILY Qty: 90 3RF tramadol 50 mg tablet 50 mg PO DAILY methotrexate sodium 5 mg tablet 25 mg PO .weekly aspirin 81 mg tablet,delayed release (DR/EC) 81 mg PO DAILY acyclovir 400 mg tablet 400 mg PO DAILY (DME) pen needle, diabetic [BD Elana 2nd Gen Pen Needle] 32 gauge x 5/32 needle See Rx Instructions .Route Qty: 100 3RF Rx Instructions: As directed (DME) Accu-Chek Guide test strips Strip See Rx Instructions .Route Qty: 100 3RF Rx Instructions: As directed (DME) lancets [Accu-Chek Softclix Lancets] Misc See Rx Instructions .Route Qty: 100 3RF Rx Instructions: As directed Trulicity 0.75 mg/0.5 mL pen injector 0.75 mg SUBCUT .qw Qty: 2 2RF atorvastatin 40 mg tablet 40 mg PO DAILY Qty: 90 3RF Discharge Orders: Discharge ED (Routine); Ordered 12/18/24 Ordered By: Bola Pena Referrals: Shannon Mcnair MD [Primary Care Provider, Family Practice] Patient Instructions: Patient Portal & Corey Instructions Activity Restrictions/Additional Instructions: UTI and Back Pain Discharge Diagnosis: - Acute uncomplicated urinary tract infection (UTI) - Left low back pain radiating to knee Medications and Instructions: - Nitrofurantoin (Macrobid) 100 mg PO every 12 hours for 7 days - Take with food (preferably breakfast and dinner) to improve absorption and reduce GI side effects.[1]https://dailymed.[employer].nih.gov/dailymed/drugInfo.cfm?setid=[email or web address][2]https://dailymed.[employer].nih.gov/dailymed/drugInfo.cfm?aoflj=385dd9ad-[id number]-gm9601x0k7rt - Complete the full course, even if symptoms improve early.[1]https://dailyEvolver.[employer].nih.gov/dailymed/drugInfo.cfm?setid=70yc5pb2-f5la-1zsz-p09t-[id number][2]https://dailyEvolver.[employer].nih.gov/dailymed/drugInfo.cfm?vlqxd=401sg5ze-sl67-31i6-8529-mv6109b6e2tb - Do not use antacids containing magnesium trisilicate during therapy.[1]https://dailyEvolver.[employer].MySQL.gov/dailymed/drugInfo.cfm?setid=90gs4er3-a2yz-9vzt-o19y-3ugh432sas9l[2]https://dailyEvolver.[employer].MySQL.gov/dailyEvolver/drugInfo.cfm?emboz=595jd1ao-id59-94m7-3464-ut7635w5u0xk - Monitor for new or unusual symptoms (e.g., rash, shortness of breath, persistent cough, jaundice, severe fatigue); contact provider if these occur.[1]https://Annelutfen.com.[employer].MySQL.gov/dailyEvolver/drugInfo.cfm?setid=28oh5zt7-a3ud-7atj-h00m-4lfn559kiu0j[2]https://Annelutfen.com.[employer].MySQL.gov/dailyEvolver/drugInfo.cfm?wrnkb=776kd3ws-pi23-86r0-6171-ij8808b4f7qg - Nitrofurantoin is contraindicated in patients with significant renal impairment (creatinine clearance <60 mL/min); monitor renal function in elderly patients.[1]https://dailyEvolver.[employer].MySQL.gov/dailymed/drugInfo.cfm?setid=[id number]-[id number][2]https://Annelutfen.com.[employer].MySQL.gov/dailymed/drugInfo.cfm?rtzou=609on3rd-hg47-29u5-4255-no0582s9o9of - Phenazopyridine (Pyridium) as prescribed - For urinary discomfort; may cause orange/red urine discoloration (benign). - Use for symptomatic relief only, typically not exceeding 2 days. - Baclofen as prescribed - For muscle spasm associated with back pain. - Use with caution in older adults due to increased risk of sedation, dizziness, and falls.[3]https://www.acpjournals.org/doi/abs/107326J44-3308?url_ver=Z&rfr_id=ahmet:rid:crossref.org&rfr_dat=cr_pub%20%200pubmed - NSAIDs and Acetaminophen (Tylenol) as needed for pain - Use the lowest effective dose for the shortest duration. - NSAIDs increase risk of GI bleeding in older adults; consider GI protection if prolonged use is anticipated.[3]https://www.acpjournals.org/doi/abs/10.73J24-4981?url_ver=Z39&rfr_id=ahmet:rid:crossref.org&rfr_dat=cr_pub%20%200pubmed - Acetaminophen preferred for mild pain due to safer profile in elderly.[3]https://www.acpjournals.org/doi/abs/107326G70-1600?url_ver=Z&rfr_id=ahmet:rid:crossref.org&rfr_dat=cr_pub%20%200pubmed General Counseling: - UTI Management: - UTI diagnosis is supported by symptoms and urine findings (positive nitrites, bacteriuria).[4]https://pubmed.ncbi.nlm.nih.gov/39059092[5]https://jamanetwork.com/journals/irene/fullarticle/10.1001/irene.2014.303?utm_source=openevidence&utm_medium=referral[6]https://pubmed.ncbi.nlm.nih.gov/94217000 - Antibiotics should only be used for symptomatic UTI, not for asymptomatic bacteriuria.[5]https://jamanetwork.com/journals/irene/fullarticle/10.1001/irene.2014.303?utm_source=openevidence&utm_medium=referral[6]https://pubmed.ncbi.nlm.nih.gov/48946461 - Diarrhea is a common antibiotic side effect; if severe, watery, or bloody stools develop (with or without fever), contact provider promptly.[1]https://dailymed.[employer].nih.gov/dailymed/drugInfo.cfm?setid=[id number]-0vhy-[id number][2]https://dailymed.[employer].nih.gov/dailymed/drugInfo.cfm?fabzd=447tl7cr-wz35-57v0-5118-lw4398w9k5dd - Back Pain Management: - Non-pharmacologic measures (heat, gentle stretching, activity as tolerated) may be beneficial. - Monitor for red flag symptoms: new/worsening weakness, numbness, loss of bowel/bladder control, fever, or history of trauma.[3]https://www.acpjournals.org/doi/abs/10.7326/T92-8814?url_ver=Z39&rfr_id=ahmet:rid:3D FUTURE VISION IIref.org&rfr_dat=cr_pub%20%200pubmed - Skeletal muscle relaxants (e.g., baclofen) are generally avoided in elderly due to increased risk of adverse events; use only if benefit outweighs risk.[3]https://www.acpjournals.org/doi/abs/10.7326/L80-0938?url_ver=Z39&rfr_id=ahmet:rid:Picturk.org&rfr_dat=cr_pub%20%200pubmed - Medication Safety: - Keep a list of all medications and report any new symptoms or side effects. - Avoid alcohol while taking these medications. - Ensure adequate hydration unless contraindicated. Return Precautions: - Seek immediate medical attention for: - Fever >101?F, rigors, or chills - Worsening back pain, new weakness, numbness, or loss of bowel/bladder control - Severe abdominal pain, persistent vomiting, or inability to tolerate oral intake - Signs of allergic reaction (rash, swelling, difficulty breathing) - Severe diarrhea, especially if bloody or associated with abdominal pain[1]https://dailymed.[employer].nih.gov/dailymed/drugInfo.cfm?setid=42sb6gl9-r3gv-7tph-n57b-3dlu406bjx9k[2]https://dailymed.nlm.nih.gov/dailymed/drugInfo.cfm?ixvll=998ba2yz-uk09-77z7-4063-dw1124k9z8gy - Confusion, jaundice, or new respiratory symptoms Follow-Up: - Schedule follow-up with primary care provider in 5 days for reassessment of UTI symptoms, medication tolerance, and evaluation of back pain. - If symptoms persist or worsen, urine culture results may guide further management.[4]https://pubmed.ncbi.nlm.nih.gov/23344600[5]https://jamanetwork.com/journals/irene/fullarticle/10.1001/irene.2014.303?utm_source=openevidence&utm_medium=referral[6]https://pubmed.ncbi.nlm.nih.gov/82949009 Laboratory Results: - CBC and BMP unremarkable; no evidence of systemic infection or renal impairment at discharge. Additional Notes: - Reinforce antimicrobial stewardship: antibiotics are for symptomatic infection only.[4]https://pubmed.ncbi.nlm.nih.gov/32216768[5]https://jamanetwork.com/journals/irene/fullarticle/10.1001/irene.2014.303?utm_source=openevidence&utm_medium=referral[6]https://pubmed.ncbi.nlm.nih.gov/86004552 - Consider fall risk and functional status in ongoing pain management.[3]https://www.acpjournals.org/doi/abs/10.7326/Z51-6991?url_ver=Z39.88-2003&rfr_id=ahmet:rid:crossref.org&rfr_dat=cr_pub%20%200pubmed Print Language: Spanish Coding Level of Care Code ED Scaffold Erector for Angelica Dinh
[2024-12-18 14:13] VITALS: BP 125/87; PULSE 81; O2SAT 95
== END 2024-12-18 14:14 | disposition home or self-care (01) ==
PROVIDERS: Emergency Provider Emergency Medicine; PCP Family Medicine
DX: N39.0 Urinary tract infection, site not specified (principal); M54.50 Low back pain, unspecified; Z79.82 Long term (current) use of aspirin; Z79.85 Long-term (current) use of injectable non-insulin antidiabetic drugs; E11.9 Type 2 diabetes mellitus without complications; E78.5 Hyperlipidemia, unspecified
CPT/HCPCS: 80048; 81001; 85025; 96372; 99284; J0696; J1885; J2360; J9999

== ENCOUNTER 2024-12-19 16:18 | Emergency (ER) | payer MEDICARE, SELFPAY ==
--- OUTSIDE RECORDS SUMMARY | 2024-12-19 16:22 | XMS_ITS | Encounter Summary ---
[facility] Address [address] [facility] Attn: Epic Prelude ADT [employer] [address] Care Team Providers Care Ct Technologist Name Role Phone Shannon Mcnair MD Primary Care Provider [phone] Encounter Details Date Type Department Care Team (Latest Contact Info) Description 04/23/2001 Emergency Chirag Huynh MD NO ADDRESS ON FILE Social History Tobacco Use Types Packs/Day Years Used Date Smoking Tobacco: Never Assessed Comments Unknown Sex and Gender Information Value Date Recorded Sex Assigned at Not on file 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
--- OUTSIDE RECORDS SUMMARY | 2024-12-19 16:22 | XMS_ITS | Encounter Summary ---
Author Organization [facility] Address [address] [facility] Attn: [place] [address] Care Team Providers Care Coat Checker Name Role Phone Shannon Mcnair MD Primary Care Provider [phone]- [phone] Encounter Details Date Type Department Care Team (Late st Contact Info) Description 05/23/2000 Inpatient Historical Chirag Moreno MD [address] [phone] Social History Tobacco Use Types Packs/Day Years Used Date Smoking Tobacco: Never Assessed Comments Unknown Sex and Gender Information Value Date Recorded Sex Assigned at Not on file 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
--- OUTSIDE RECORDS SUMMARY | 2024-12-19 16:22 | XMS_ITS | Encounter Summary ---
Author Organization [facility] Address [address] [place] [address] Care Team Providers Care Extermination Inspector Name Role Phone Shannon Mcnair MD Primary Care Provider [phone]- [phone] Encounter Details Date Type Department Care Team (Latest Contact Info) Description 08/20/2002 Outpatient Historical [facility] [place] [address] [place] [address] Carlton Gee MD NO ADDRESS ON FILE SCREENING MAMM-MAILG NEOPL-OTHER (Primary Dx) Social History Tobacco Use Types Packs/Day Years Used Date Smoking Tobacco: Never Assessed Comments Unknown Sex and Gender Information Value Date Recorded Sex Assigned at Not on file 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
--- OUTSIDE RECORDS SUMMARY | 2024-12-19 16:22 | XMS_ITS | Encounter Summary ---
Author Organization [facility] Address [address] [place] [address] Care Team Providers Care Hat Sprayer Name Role Phone Shannon Mcnair MD Primary Care Provider [phone]- [phone] Encounter Details Date Type Department Care Team (Latest Contact Info) Description 11/04/2005 Outpatient Historical [facility] [address] 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
--- OUTSIDE RECORDS SUMMARY | 2024-12-19 16:22 | XMS_ITS | Encounter Summary ---
Author Organization [facility] Address [address] [place] [address] Care Team Providers Care Cocoa Bean Roaster Name Role Phone Shannon Mcnair MD Primary Care Provider [phone]- [phone] Encounter Details Date Type Department Care Team (Latest Contact Info) Description 06/03/2000 Outpatient Historical [facility] Urology- [address]tr[address], 3[address] [place] [phone] Chirag Moreno MD [address] [phone] Female stress incontinence (Primary Dx) Social History Tobacco Use Types Packs/Day Years Used Date Smoking Tobacco: Never Assessed Comments Unknown Sex and Gender Information Value Date Recorded Sex Assigned at Not on file 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
--- OUTSIDE RECORDS SUMMARY | 2024-12-19 16:22 | XMS_ITS | Encounter Summary ---
Author Organization [facility] Address [address] [place] [address] Care Team Providers Care Research Quality Assurance Specialist Name Role Phone Shannon Mcnair MD Primary Care Provider +1- [phone] Encounter Details Date Type Department Care Team (Latest Contact Info) Description 04/25/2000 Outpatient Historical [facility] Urology- [address] Entrance B, 3rd [place] [address] Chirag Moreno MD [address] [address] Hematuria (Primary Dx); Mixed incontinence urge and stress (male)(female) Social History Tobacco Use Types Packs/Day Years Used Date Smoking Tobacco: Never Assessed Comments Unknown Sex and Gender Information Value Date Recorded Sex Assigned at Not on file 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
--- OUTSIDE RECORDS SUMMARY | 2024-12-19 16:22 | XMS_ITS | Encounter Summary ---
Author Organization [facility] Address [address] [place] [address] Care Team Providers Care Teacher Advisor Name Role Phone Shannon Mcnair MD Primary Care Provider +1- [phone] Encounter Details Date Type Department Care Team (Late st Contact Info) Description 11/04/2005 Emergency [facility] Emergency Department [facility] [place] [phone] Onofre Gramajo MD [address] [place] [address] Abdominal Pain, Unspecified Site (Primary Dx) Social History Tobacco Use Types Packs/Day Years Used Date Smoking Tobacco: Never Assessed Comments Unknown Sex and Gender Information Value Date Recorded Sex Assigned at Not on file Legal Sex Female 6:46 AM DEBT COUNSELOR Gender Identity Not on file Sexual Orientation [...] INTERFACE SYSTEM Comment: As of 05 the [facility] has changed testing methods. The new reference range is 6-51 The old referance range was 23-300 11/04/2005 11:2 3 PM CDT us Onofre Gramajo MD CHEMISTRY ORDERABLES Final Res ult Performing Organization Address [facility] Phone Number INTERFACE SYSTEM Refer to clinic/hospital department * AMYLASE (11/04/2005 11:23 PM CDT) AMYLASE 54 20 - 104 U/L INTERFACE SYSTEM Comment: As of 05 the [facility] has changed testing methods. The new reference range is 20-104 The old referance range was 30-120 Specimen moderately hemolyzed 11/04/2005 11:2 3 PM CDT us Onofre Gramajo MD CHEMISTRY ORDERABLES Final Res ult Performing Organization Address [facility] Phone Number INTERFACE SYSTEM Refer to clinic/hospital [...] INTERFACE SYSTEM Comment: As of 05 the [facility] has changed testing methods. The new reference range is 25-100 The old referance range was 38-126 AST 55(H) 8 - 33 U/L INTERFACE SYSTEM Comment: As of 05 the [facility] has changed testing methods. The new reference range is 8-33 The old referance range was Males 17-59 Females 14-36 ALT 35 4 - 36 IU/L INTERFACE SYSTEM Comment: As of 05 the [facility] has changed testing methods. The new reference range is 4-36 The old referance range was Males 21-72 Females 9-52 BILIRUBIN TOTAL 0.3 0.3 - 1.2 mg/dL INTERFACE SYSTEM Comment: As of 05 the [facility] has changed testing methods. The new [...] Primary documented in this encounter Care Teams Teacher Advisor Relationship Specialty Start Date End Date Shannon Mcnair MD [address] [place] [address] PCP - General Family Practice 06/11/10 documented as of this encounter
--- OUTSIDE RECORDS SUMMARY | 2024-12-19 16:22 | XMS_ITS | Encounter Summary ---
Author Organization [facility] Address [address] [place] [address] Care Team Providers Care Account Director Name Role Phone Shannon Mcnair MD Primary Care Provider [phone]- [phone] Encounter Details Date Type Department Care Team (Latest Contact Info) Description 09/06/2006 Outpatient Historical [facility] [address] 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
--- OUTSIDE RECORDS SUMMARY | 2024-12-19 16:22 | XMS_ITS | Clinical Summary ---
Author Organization [facility] Address [address] [facility] [place] [address] Care Team Providers Care Power Plant Operators Supervisor Name Role Phone Shannon Mcnair MD Primary Care Provider +1- [phone] Allergies Active Allergy Reactions Criticality Noted Date [...] on file Legal Sex Female 6:46 AM RESEARCH GROUP DIRECTOR Gender Identity Not on file Sexual Orientation Not on file Last Filed Vital Signs Vital Sign Reading Time Taken Comments Blood Pressure 110/68 05/03/2020 11:16 AM RESEARCH GROUP DIRECTOR Pulse 68 05/03/2020 11:16 AM RESEARCH GROUP DIRECTOR Temperature 35.4 C (95.8 F) 04/24/2012 8:21 PM RESEARCH GROUP DIRECTOR Respiratory Rate 18 04/24/2012 11:54 PM RESEARCH GROUP DIRECTOR Oxygen Saturation 97% 04/24/2012 11:54 PM RESEARCH GROUP DIRECTOR Inhaled Oxygen Concentration - - Weight 68.5 kg (151 lb) 05/03/2020 11:16 AM RESEARCH GROUP DIRECTOR Height 154.9 cm (5' 1 ) 05/03/2020 11:16 AM RESEARCH GROUP DIRECTOR Body Mass Index 28.53 05/03/2020 11:16 AM RESEARCH GROUP DIRECTOR Plan of Treatment Health Maintenance Due Date [...] 2025 ZOSTER VACCINE Completed 12/17/2018, 12/11/2017 Insurance [facility] Care Teams Power Plant Operators Supervisor Relationship Specialty Start Date End Date Shannon Mcnair MD [address] [place] [address] PCP - General Family Practice 06/11/10
--- OUTSIDE RECORDS SUMMARY | 2024-12-19 16:22 | XMS_ITS | Encounter Summary ---
Author Organization [facility] Address [address] [place] [address] Care Team Providers Care Store Team Leader Name Role Phone Shannon Mcnair MD Primary Care Provider [phone] Encounter Details Date Type Department Care Team [...] on file Legal Sex Female 1:48 PM CHILD DEVELOPMENT SPECIALIST Gender Identity Not on file Sexual Orientation Not on file documented as of this encounter Plan of Treatment Upcoming Encounters Date Type Department Care Team (Late st Contact Info) Description 04/06/2025 9:20 AM CHILD DEVELOPMENT SPECIALIST Office Visit [facility] Rheumatology- [place] [address] [place] [address] Matt Cortes MD [address] [place] [address] documented as of this encounter Visit Diagnoses Not on filedocumented in this encounter Care Teams Store Team Leader Relationship Specialty Start Date End Date Shannon Mcnair MD [address] [place] [address] PCP - General 07/27/20 documented as of this encounter
--- OUTSIDE RECORDS SUMMARY | 2024-12-19 16:22 | XMS_ITS | Encounter Summary ---
Author Organization [facility] Address [address] [place] [address] Care Team Providers Care Creative Writing Professor Name Role Phone Shannon Mcnair MD Primary Care Provider [phone]- [phone] Encounter Details Date Type Department Care Team (Latest Contact Info) Description 06/17/2005 Outpatient Historical [facility] [address] [place] [address] AMBULANCE, [facility] HYPERVENTILATION (Primary Dx) Social History Tobacco Use Types Packs/Day Years Used Date Smoking Tobacco: Never Assessed Comments Unknown Sex and Gender Information Value Date Recorded Sex Assigned at Not on file 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
--- OUTSIDE RECORDS SUMMARY | 2024-12-19 16:22 | XMS_ITS | Clinical Summary ---
Author Organization [facility] Address [address] [place] [address] Care Team Providers Care Business Intelligence Director Name Role Phone Shannon Mcnair MD Primary Care Provider +- [phone] Allergies Active Allergy Reactions Criticality Noted Date [...] on file Legal Sex Female 1:48 PM SEAT PACK INSPECTOR Gender Identity Not on file Sexual Orientation [...] st Contact Info) Description 04/06/2025 9:20 AM SEAT PACK INSPECTOR Office Visit [facility] Rheumatology- [place] [address] [place] [address] Matt Cortes MD [address] [facility] [address] [place] [phone] Health Maintenance Due Date Last Done Comments [...] 6.6(H) <=5.6 % 09/07/2021 7:17 AM CDT [facility] [employer] [facility] EST. AVG GLUCOSE, A1C 143 mg/dL 09/07/2021 7:17 AM CDT [facility] Blood Venipuncture / Unknown 09/05/2021 7:39 PM CDT 09/05/2021 7:44 PM CDT Narrative [facility] [employer] [facility] - 09/07/2021 7:17 AM CDT HGB A1C INTERPRETATION NORMAL: <5.7% PRE-DIABETES: 5.7 - 6.4% DIABETES: 6.5% OR GREATER us Ivory Luque MD CHEMISTRY ORDERABLES Final Resu lt [facility] CLIA # [id number] [facility] [address] [place] [address] * (ABNORMAL) LIPID PANEL (09/05/2021 7:39 PM CDT) CHOLESTEROL 144 <200 mg/dL 09/06/2021 11:22 AM T [facility] TRIGLYCERIDE 36 <150 mg/dL 09/06/2021 11:22 AM T [facility] HDL 84(H) 40 - 59 mg/dL 09/06/2021 11:22 AM T [facility] LDL CALCULATED 53 <100 mg/dL 09/06/2021 11:22 AM T [facility] NON-HDL CHOLESTEROL 60 <130 mg/dL 09/06/2021 11:22 AM T [facility] Blood Venipuncture / Unknown 09/05/2021 7:39 PM CDT 09/05/2021 7:47 PM CDT Narrative [facility] - 09/06/2021 11:22 AM CDT TOTAL CHOLESTEROL [...] Luque MD CHEMISTRY ORDERABLES Final Resu lt [facility] CLIA # [id number] [address] [place] [address] [place] [address] from Last 3 Months or Most Recently Relevant to Health Maintenance Insurance [facility] MEDICARE HMO Advance Directives For more information, please contact: [phone] * Default Full Code - Needs Discussion (Latest Code Status on File) Date Activated Date Inactivated Comments 09/06/2021 5:46 AM 09/07/2021 7:46 PM Care Teams Business Intelligence Director Relationship Specialty Start Date End Date Shannon Mcnair MD [address] [place] [address] PCP - General 07/27/20
--- OUTSIDE RECORDS SUMMARY | 2024-12-19 16:22 | XMS_ITS | Encounter Summary ---
Author Organization [facility] Address [address] [place] [address] Care Team Providers Care Flat Knitter Helper Name Role Phone Shannon Mcnair MD Primary Care Provider [phone]- [phone] Encounter Details Date Type Department Care Team (Latest Contact Info) Description 06/17/2005 Outpatient Historical [facility] [address] [place] [address] AMBULANCE, [facility] NAUSEA WITH VOMITING (Primary Dx) Social History Tobacco Use Types Packs/Day Years Used Date Smoking Tobacco: Never Assessed Comments Unknown Sex and Gender Information Value Date Recorded Sex Assigned at Not on file Legal Sex Female 6:46 AM CUT OFF SAW TENDER METAL Gender Identity Not on file Sexual Orientation Not on file documented as of this encounter Plan of Treatment Not on file documented as of this encounter Visit Diagnoses Diagnosis Nausea with vomiting- Primary documented in this encounter Care Teams Flat Knitter Helper Relationship Specialty Start Date End Date Shannon Mcnair MD [address] [place] [address] PCP - General Family Practice 06/11/10 documented as of this encounter
--- OUTSIDE RECORDS SUMMARY | 2024-12-19 16:22 | XMS_ITS | Encounter Summary ---
Author Organization [facility] Address [address] [place] [address] Care Team Providers Care Parks Recreation Coordinator Name Role Phone Shannon Mcnair MD Primary Care Provider +1- [phone] Encounter Details Date Type Department Care Team (Latest Contact Info) Description 05/26/2000 Outpatient Historical [facility] Urology- [address] Entrance B, 3rd [place] [address] Chirag Moreno MD [address] [phone] Female stress incontinence (Primary Dx) Social History Tobacco Use Types Packs/Day Years Used Date Smoking Tobacco: Never Assessed Comments Unknown Sex and Gender Information Value Date Recorded Sex Assigned at Not on file Legal Sex Female 6:46 AM CARBON PLANT GRINDER Gender Identity Not on file Sexual Orientation Not on file documented as of this encounter Plan of Treatment Not on file documented as of this encounter Visit Diagnoses Diagnosis Female stress incontinence- Primary documented in this encounter Care Teams Parks Recreation Coordinator Relationship Specialty Start Date End Date Shannon Mcnair MD [address] [place] [address] PCP - General Family Practice 06/11/10 documented as of this encounter
--- OUTSIDE RECORDS SUMMARY | 2024-12-19 16:22 | XMS_ITS | Encounter Summary ---
Author Organization [facility] Address [address] [facility] Attn: [place] [address] Care Team Providers Care Manager Gallery Name Role Phone Shannon Mcnair MD Primary Care Provider +1- [phone] Encounter Details Date Type Department Care Team (Late st Contact Info) Description 05/19/2000 Outpatient Historical Chirag Moreno MD [address] [phone] Social History Tobacco Use Types Packs/Day Years Used Date Smoking Tobacco: Never Assessed Comments Unknown Sex and Gender Information Value Date Recorded Sex Assigned at Not on file Legal Sex Female 6:46 AM CONTENT ASSISTANT Gender Identity Not on file Sexual Orientation Not on file documented as of this encounter Plan of Treatment Not on file documented as of this encounter Visit Diagnoses Not on filedocumented in this encounter Care Teams Manager Gallery Relationship Specialty Start Date End Date Shannon Mcnair MD [address] [place] [address] PCP - General Family Practice 06/11/10 documented as of this encounter
--- OUTSIDE RECORDS SUMMARY | 2024-12-19 16:22 | XMS_ITS | Encounter Summary ---
Author Organization [facility] Address [address] [place] [address] Care Team Providers Care Lunch Wagon Operator Name Role Phone Shannon Mcnair MD Primary Care Provider +1- [phone] Encounter Details Date Type Department Care Team (Latest Contact Info) Description 08/20/2002 Outpatient Historical [facility] [place] [address] [place] [address] Non-Staff, Physician NO ADDRESS ON FILE SCREENING MAMM-MAILG NEOPL-OTHER (Primary Dx) Social History Tobacco Use Types Packs/Day Years Used Date Smoking Tobacco: Never Assessed Comments Unknown Sex and Gender Information Value Date Recorded Sex Assigned at Not on file Legal Sex Female 6:46 AM RABBET OPERATOR Gender Identity Not on file Sexual Orientation Not on file documented as of this encounter Plan of Treatment Not on file documented as of this encounter Visit Diagnoses Diagnosis Other screening mammogram- Primary documented in this encounter Care Teams Lunch Wagon Operator Relationship Specialty Start Date End Date Shannon Mcnair MD [address] [place] [address] PCP - General Family Practice 06/11/10 documented as of this encounter
--- OUTSIDE RECORDS SUMMARY | 2024-12-19 16:22 | XMS_ITS | Encounter Summary ---
Author Organization [facility] Address [address] [place] [address] Care Team Providers Care Lawnmower Repair Mechanic Name Role Phone Shannon Mcnair MD Primary Care Provider +1- [phone] Encounter Details Date Type Department Care Team (Latest Contact Info) Description 05/19/2000 Outpatient Historical [facility] Urology- [address]tr[address], 3rd [place] [address] Chirag Moreno MD [address] [phone] Female stress incontinence (Primary Dx); Urinary frequency Social History Tobacco Use Types Packs/Day Years Used Date Smoking Tobacco: Never Assessed Comments Unknown Sex and Gender Information Value Date Recorded Sex Assigned at Not on file Legal Sex Female 6:46 AM TERMINAL GAUGER SUPERVISOR Gender Identity Not on file Sexual Orientation Not on file documented as of this encounter Plan of Treatment Not on file documented as of this encounter Visit Diagnoses Diagnosis Female stress incontinence- Primary Urinary frequency documented in this encounter Care Teams Lawnmower Repair Mechanic Relationship Specialty Start Date End Date Shannon Mcnair MD [address] [place] [address] PCP - General Family Practice 06/11/10 documented as of this encounter
--- OUTSIDE RECORDS SUMMARY | 2024-12-19 16:22 | XMS_ITS | Encounter Summary ---
Author Organization [facility] Address [address] [place] [address] Care Team Providers Care Sample Tester Name Role Phone Shannon Mcnair MD Primary Care Provider +1- [phone] Encounter Details Date Type Department Care Team (Latest Contact Info) Description 10/10/2005 Outpatient Historical [facility]ulance [address] [place] [address] AMBULANCE, [facility] Pain in Soft Tissues of Limb (Primary Dx) Social History Tobacco Use Types Packs/Day Years Used Date Smoking Tobacco: Never Assessed Comments Unknown Sex and Gender Information Value Date Recorded Sex Assigned at Not on file Legal Sex Female 6:46 AM PLANT BREEDER SCIENTIST Gender Identity Not on file Sexual Orientation Not on file documented as of this encounter Plan of Treatment Not on file documented as of this encounter Visit Diagnoses Diagnosis Pain in limb- Primary documented in this encounter Care Teams Sample Tester Relationship Specialty Start Date End Date Shannon Mcnair MD [address] [place] [address] PCP - General Family Practice 06/11/10 documented as of this encounter
--- OUTSIDE RECORDS SUMMARY | 2024-12-19 16:22 | XMS_ITS | Encounter Summary ---
Author Organization [facility] Address [address] [place] [address] Care Team Providers Care Airplane Cleaner Name Role Phone Shannon Mcnair MD Primary Care Provider +1- [phone] Encounter Details Date Type Department Care Team (Latest Contact Info) Description 07/14/2000 Outpatient Historical [facility] Urology- [address]tr[address], 3rd [place] [phone] Chirag Moreno MD [address] [address] Mixed incontinence urge and stress (male)(female) (Primary Dx) Social History Tobacco Use Types Packs/Day Years Used Date Smoking Tobacco: Never Assessed Comments Unknown Sex and Gender Information Value Date Recorded Sex Assigned at Not on file Legal Sex Female 6:46 AM LAW LIBRARIAN Gender Identity Not on file Sexual Orientation Not on file documented as of this encounter Plan of Treatment Not on file documented as of this encounter Visit Diagnoses Diagnosis Mixed incontinence urge and stress (male)(female)- Primary documented in this encounter Care Teams Airplane Cleaner Relationship Specialty Start Date End Date Shannon Mcnair MD [address] [place] [address] PCP - General Family Practice 06/11/10 documented as of this encounter
--- OUTSIDE RECORDS SUMMARY | 2024-12-19 16:22 | XMS_ITS | Encounter Summary ---
Author Organization [facility] Address [address] [place] [address] Care Team Providers Care Stamp Maker Name Role Phone Shannon Mcnair MD Primary Care Provider +1- [phone] Encounter Details Date Type Department Care Team (Late st Contact Info) Description 02/22/2005 Outpatient Historical [facility] Plastic Surgery [address] [place] [address] Bruce Jones MD [address] [place] [address] PLASTIC SURGERY NEC (Primary Dx) Social History Tobacco Use Types Packs/Day Years Used Date Smoking Tobacco: Never Assessed Comments Unknown Sex and Gender Information Value Date Recorded Sex Assigned at Not on file Legal Sex Female 6:46 AM LEAD ARCHITECT Gender Identity Not on file Sexual Orientation Not on file documented as of this encounter Plan of Treatment Not on file documented as of this encounter Visit Diagnoses Diagnosis Other plastic surgery for unacceptable cosmetic appearance- Primary documented in this encounter Care Teams Stamp Maker Relationship Specialty Start Date End Date Shannon Mcnair MD [address] [place] [address] PCP - General Family Practice 06/11/10 documented as of this encounter
--- OUTSIDE RECORDS SUMMARY | 2024-12-19 16:22 | XMS_ITS | Encounter Summary ---
Author Organization [facility] Address [address] [place] [address] Care Team Providers Care Aircraft Cylinder Mechanic Name Role Phone Shannon Mcnair MD Primary Care Provider +1- [phone] Encounter Details Date Type Department Care Team (Latest Contact Info) Description 11/04/2005 Outpatient Historical [facility] Ambulance [address] [place] [address] AMBULANCE, [facility] Poisoning by Unspecified Drug or Medicinal Substance (Primary Dx) Social History Tobacco Use Types Packs/Day Years Used Date Smoking Tobacco: Never Assessed Comments Unknown Sex and Gender Information Value Date Recorded Sex Assigned at Not on file Legal Sex Female 6:46 AM KICK PLATE INSTALLER Gender Identity Not on file Sexual Orientation Not on file documented as of this encounter Plan of Treatment Not on file documented as of this encounter Visit Diagnoses Diagnosis Poisoning by unspecified drug or medicinal substance(977.9)- Primary Poisoning by unspecified drug or medicinal substance documented in this encounter Care Teams Aircraft Cylinder Mechanic Relationship Specialty Start Date End Date Shannon Mcnair MD [address] [place] [address] PCP - General Family Practice 06/11/10 documented as of this encounter
--- OUTSIDE RECORDS SUMMARY | 2024-12-19 16:22 | XMS_ITS | Encounter Summary ---
Author Organization [facility] Address [address] [place] [address] Care Team Providers Care Automation Controls Specialist Name Role Phone Shannon Mcnair MD Primary Care Provider [phone] Encounter Details Date Type Department Care Team (Late st Contact Info) Description 06/07/2002 Emergency [facility] [address] [place] [address] Wesley Camacho MD NO ADDRESS ON FILE CHEST PAIN NOS (Primary Dx) Social History Tobacco Use Types Packs/Day Years Used Date Smoking Tobacco: Never Assessed Comments Unknown Sex and Gender Information Value Date Recorded Sex Assigned at Not on file Legal Sex Female 6:46 AM POWDERER Gender Identity Not on file Sexual Orientation Not on file documented as of this encounter Plan of Treatment Not on file documented as of this encounter Visit Diagnoses Diagnosis Chest pain, unspecified- Primary documented in this encounter Care Teams Automation Controls Specialist Relationship Specialty Start Date End Date Shannon Mcnair MD [address] [place] [address] PCP - General Family Practice 06/11/10 documented as of this encounter
--- OUTSIDE RECORDS SUMMARY | 2024-12-19 16:22 | XMS_ITS | Encounter Summary ---
Author Organization [facility] Address [address] [place] [address] Care Team Providers Care Business Transformation Analyst Name Role Phone Shannon Mcnair MD Primary Care Provider [phone] Encounter Details Date Type Department Care Team (Latest Contact Info) Description 06/27/2004 Outpatient Historical [facility] [address] [place] [address] AMBULANCE, [facility] CHEST PAIN NOS (Primary Dx) Social History Tobacco Use Types Packs/Day Years Used Date Smoking Tobacco: Never Assessed Comments Unknown Sex and Gender Information Value Date Recorded Sex Assigned at Not on file Legal Sex Female 6:46 AM PUBLICITY EXPERT Gender Identity Not on file Sexual Orientation Not on file documented as of this encounter Plan of Treatment Not on file documented as of this encounter Visit Diagnoses Diagnosis Chest pain, unspecified- Primary documented in this encounter Care Teams Business Transformation Analyst Relationship Specialty Start Date End Date Shannon Mcnair MD [address] [place] [address] PCP - General Family Practice 06/11/10 documented as of this encounter
--- OUTSIDE RECORDS SUMMARY | 2024-12-19 16:22 | XMS_ITS | Encounter Summary ---
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 Name Role Phone Shannon Mcnair MD Primary Care Provider [phone] Encounter Details Date Type Department Care Team (Late st Contact Info) Description 04/22/2000 Outpatient Historical Amanuel Manning, DO [address] [place] [address] Social History Tobacco Use Types Packs/Day Years Used Date Smoking Tobacco: Never Assessed Comments Unknown Sex and Gender Information Value Date Recorded Sex Assigned at Not on file 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
[2024-12-19 16:35] VITALS: BP 147/87; PULSE 87; RESP 14; TEMP 36.8; O2SAT 96; BMI 27.4
--- NOTE | 2024-12-19 16:50 | CTR_ITS ---
PROCEDURE INFORMATION: Exam: CT Abdomen And Pelvis Without Contrast Exam date and time: 12/19/2024 5:06 PM Age: 74 years old Clinical indication: Other: Back pain TECHNIQUE: Imaging protocol: Computed tomography of the abdomen and pelvis without contrast. Radiation optimization: All CT scans at this facility use at least one of these dose optimization techniques: automated exposure control; mA and/or kV adjustment per patient size (includes targeted exams where dose is matched to clinical indication); or iterative reconstruction. COMPARISON: No relevant prior studies available. RADIATION DOSE METRICS: Total DLP (mGy-cm): 514.04 FINDINGS: Lungs: Mild dependent atelectasis. Liver: Normal. No mass. Gallbladder and biliary ducts: Prior cholecystectomy without biliary ductal dilatation. Pancreas: Normal. No ductal dilation. Spleen: Normal. No splenomegaly. Adrenal glands: Normal. No mass. Kidneys and ureters: Mild symmetric perirenal fat stranding. Otherwise unremarkable. No calcified urolithiasis or hydroureteronephrosis. Stomach and bowel: No bowel dilatation to suggest obstruction. Colonic diverticulosis without findings of diverticulitis. Appendix: No evidence of appendicitis. Intraperitoneal space: Unremarkable. No free air. No significant fluid collection. Vasculature: Mild systemic atherosclerotic calcification without abdominal aortic aneurysm. Lymph nodes: Unremarkable. No enlarged lymph nodes. Urinary bladder: Unremarkable as visualized. Reproductive: The uterus is surgically absent. Bones/joints: No acute fracture. [id number]-mr-[id number] degenerative changes along the imaged axial skeletal system with moderate bilateral neural foraminal stenosis at L5-S1. Soft tissues: Tiny fat containing umbilical hernia and small fat containing bilateral inguinal hernias. Asymmetric left flank subcutaneous stranding and small air lucency. CT/CT kidney stone [id number] IMPRESSION: 1. Mild symmetric perirenal fat stranding is commonly an incidental age-related finding, correlate for pyelonephritis. 2. Asymmetric left flank subcutaneous stranding and small air lucency likely on the basis of recent injection. 3. Additional chronic and incidental findings as above.
--- NOTE | 2024-12-19 16:59 | W.ED.BACK ---
HPI - Back Pain/Injury General: Chief Complaint: Back Pain/Injury Stated Complaint: urinary pain Time Seen by Provider: 12/19/24 16:50 Source: patient Mode of arrival: ambulatory Limitations: no limitations History of Present Illness: 74-year-old female states she was seen here yesterday was diagnosed UTI patient had blood work done that was normal states she is continue to have some left flank pain has been sharp in nature rates it a 4 out of 10 currently she denies any fever today denies any vomiting or diarrhea. Associated symptoms: Reports dysuria; Deny abdominal pain, chills, fever(s), nausea or vomiting Related Data Home Medications ?Medication ?Instructions ?Recorded ?Confirmed folic acid 1 mg tablet 1 mg PO DAILY 10/31/21 08/31/24 acyclovir 400 mg tablet 400 mg PO DAILY 02/12/24 08/31/24 aspirin 81 mg tablet,delayed 81 mg PO DAILY 02/12/24 08/31/24 release methotrexate sodium 5 mg tablet 25 mg PO .weekly 02/12/24 08/31/24 tramadol 50 mg tablet 50 mg PO DAILY 02/12/24 08/31/24 Previous Rx's ?Medication ?Instructions ?Recorded blood sugar diagnostic (Accu-Chek #100 ea 02/12/24 Guide test strips) lancets (Accu-Chek Softclix #100 ea 02/12/24 Lancets) pen needle, diabetic 32 gauge x #100 ea 02/12/24 (BD Elana 2nd Gen Pen Needle) dulaglutide 0.75 mg/0.5 mL 0.75 mg (0.5 mL) SUBCUT .qw #2 mL 06/07/24 subcutaneous pen injector ([email or web address]) atorvastatin 40 mg tablet 40 mg PO DAILY #90 tabs 08/31/24 dulaglutide 1.5 mg/0.5 mL 1.5 mg (0.5 mL) SUBCUT .qw #2 mL 08/31/24 subcutaneous pen injector (Trulicity) glimepiride 2 mg tablet 4 mg (2 x 2 mg) PO BID #180 tabs 08/31/24 hydrochlorothiazide 12.5 mg tablet 12.5 mg PO DAILY #90 tabs 08/31/24 insulin degludec 100 unit/mL (3 40 unit (0.4 mL) SUBCUT DAILY #45 08/31/24 mL) subcutaneous pen (Tresiba mL FlexTouch U-100 insulin) metoprolol succinate 25 mg 25 mg PO DAILY #90 tabs 08/31/24 tablet,extended release 24 hr omeprazole 20 mg capsule,delayed 20 mg PO DAILY #90 caps 08/31/24 release baclofen 10 mg tablet 10 mg PO BID 5 days #10 tabs 12/18/24 nitrofurantoin 100 mg PO BID 5 days #10 caps 12/18/24 monohydrate/macrocrystals 100 mg capsule (Macrobid) hydrocodone 5 mg-acetaminophen 325 1 tab PO Q6H PRN pain #14 tabs 12/19/24 mg tablet ondansetron 4 mg disintegrating 4 mg PO Q6H PRN nausea and 12/19/24 tablet vomiting #14 tabs Allergies Allergy/AdvReac Type Severity Reaction Status Date / Time Penicillins Allergy Intermediate unknown Verified 12/19/24 16:34 Iodinated Contrast Media Allergy ALGY-Rash Verified 12/19/24 16:34 Review of Systems Const: Denies: fever(s), chills, body aches or change in appetite ENMT: Denies: throat pain or dental pain Card: Denies: chest pain Resp: Denies: dyspnea GI: Denies: abdominal pain, nausea, vomiting or diarrhea : Reports: flank pain and dysuria Musc: Reports: back pain; Denies: neck pain Skin/Breast: Denies: rash Neuro: Denies: headache(s) PFSH ED PFSH: Medical History Fibromyalgia Type 2 diabetes mellitus, with long-term current use of insulin Diabetes type 2, uncontrolled Rheumatoid arthritis sees [facility] rheumatology GERD without esophagitis Hx of completed stroke Left MCA territory on MRI Expressive aphasia Hyperlipidemia LDL goal <70 Hypertension, essential Uncontrolled type 2 diabetes mellitus, with long-term current use of insulin Unsteady gait Surgical History History of bladder suspension procedure Hx of cholecystectomy Hx of colonoscopy 8.524--tubular adenoma; f/u Q5yrs as mother had colon CA Hx of appendectomy Hx of hysterectomy with BSO--had cysts on ovaries Family History Father No problems noted. Mother Colon cancer Social History Smoking and tobacco/nicotine status: never used tobacco/nicotine Alcohol intake: never Substance/Drug Use: never Household members: other Details: lives with granddaughter Housing: House Marital status: / Number of children: 2 Highest education level completed: 11th Grade Current occupational status: retired Previous occupational history: [email or web address] Physical Exam Const: COMMON NORMALS: no acute distress, patient oriented x3 and healthy appearing HENMT: COMMON NORMALS: normocephalic and atraumatic HEAD & SCALP: normocephalic and atraumatic Eye: COMMON NORMALS: conjunctivae normal CONJUNCTIVA: Yes conjunctivae normal Neck/C-Spine: COMMON NORMALS: full ROM and supple Chest: COMMONS NORMALS: normal inspection of the chest Resp: COMMON NORMALS: normal respiratory effort Cardio: COMMON NORMALS: regular rate, regular rhythm and No murmurs present (Cardio) RATE: regular rate RHYTHM: regular rhythm GI: COMMON NORMALS: Normal to inspection, nondistended, normoactive bowel sounds present, Soft to palpation, non-tender and no masses PALPATION: Yes Soft to palpation Extremity: COMMON NORMALS: normal to inspection and full ROM Neuro: COMMON NORMALS: patient oriented x3, moves all extremities and no focal motor deficits Psych: COMMON NORMALS: mental status grossly normal, Normal thought process present and cooperative THOUGHT PROCESS: Normal thought process present Skin: COMMON NORMALS: no rashes or lesions noted and no wounds GENERAL SKIN EXAM: no rashes or lesions noted Course Vital Signs: Vital signs: Vital Signs Temperature 98.2 F 12/19/24 16:35 Pulse Rate 87 12/19/24 16:35 Respiratory Rate 14 12/19/24 16:35 Blood Pressure 147/87 12/19/24 16:35 Pulse Oximetry 96 12/19/24 16:35 MDM - Back Pain/Injury Medical Decision Making Patient presents here with UTI CT showed likely a pyelo she does not appear septic no kidney stone her pain is much improved she is continuing antibiotics and return if worsening Medical Records I reviewed the patient's medical records. Labs Radiology Impressions Abdomen/Pelvis CT 12/19/24 16:50 IMPRESSION: 1. Mild symmetric perirenal fat stranding is commonly an incidental age-related finding, correlate for pyelonephritis. 2. Asymmetric left flank subcutaneous stranding and small air lucency likely on the basis of recent injection. 3. Additional chronic and incidental findings as above. All radiology interpretation(s) finalized by discharge Discharge Plan Discharge Patient Disposition: Home Clinical Impression: Acute cystitis Condition: Stable Prescriptions: New hydrocodone-acetaminophen 5-325 mg tablet 1 tab PO Q6H PRN (Reason: pain) Qty: 14 0RF ondansetron 4 mg tablet,disintegrating 4 mg PO Q6H PRN (Reason: nausea and vomiting) Qty: 14 0RF No Action folic acid 1 mg tablet 1 mg PO DAILY Trulicity 1.5 mg/0.5 mL pen injector 1.5 mg SUBCUT .qw Qty: 2 5RF glimepiride 2 mg tablet 4 mg PO BID Qty: 180 1RF hydrochlorothiazide 12.5 mg tablet 12.5 mg PO DAILY Qty: 90 3RF insulin degludec [Tresiba FlexTouch U-100] 100 unit/mL (3 mL) insulin pen 40 unit SUBCUT DAILY Qty: 45 5RF metoprolol succinate 25 mg tablet extended release 24 hr 25 mg PO DAILY Qty: 90 3RF omeprazole 20 mg capsule,delayed release(DR/EC) 20 mg PO DAILY Qty: 90 3RF tramadol 50 mg tablet 50 mg PO DAILY methotrexate sodium 5 mg tablet 25 mg PO .weekly aspirin 81 mg tablet,delayed release (DR/EC) 81 mg PO DAILY acyclovir 400 mg tablet 400 mg PO DAILY (DME) pen needle, diabetic [BD Elana 2nd Gen Pen Needle] 32 gauge x 5/32 needle See Rx Instructions .Route Qty: 100 3RF Rx Instructions: As directed (DME) Accu-Chek Guide test strips Strip See Rx Instructions .Route Qty: 100 3RF Rx Instructions: As directed (DME) lancets [Accu-Chek Softclix Lancets] Misc See Rx Instructions .Route Qty: 100 3RF Rx Instructions: As directed Trulicity 0.75 mg/0.5 mL pen injector 0.75 mg SUBCUT .qw Qty: 2 2RF atorvastatin 40 mg tablet 40 mg PO DAILY Qty: 90 3RF nitrofurantoin monohyd/m-cryst [Macrobid] 100 mg capsule 100 mg PO BID 5 Days Qty: 10 0RF Rx Instructions: must administer with a meal/food baclofen 10 mg tablet 10 mg PO BID 5 Days Qty: 10 0RF Discharge Orders: Discharge ED (Routine); Ordered 12/19/24 Ordered By: Palmer De La Torre Referrals: Shannon Mcnair MD [Primary Care Provider, [facility]] Discharge Diet: Advance as tolerated Discharge Activity: Resume usual activity Patient Instructions: Urinary Tract Infection in Women (ED), Opioid Safety Print Language: Senegalese Coding Level of Care Code ED Manager Beverage for Angelica Dinh
[2024-12-19] MEDS: HYDROcodone-acetaminophen 5-325 mg Tablet 1 TAB PO (17:00)
[2024-12-19] MEDS: cefTRIAXone 1,000 MG in water for injection-sterile 2.1 ML 999 MG IM (17:01)
== END 2024-12-19 17:44 | disposition home or self-care (01) ==
PROVIDERS: Emergency Provider Emergency Medicine; PCP Family Medicine
DX: N30.00 Acute cystitis without hematuria (principal); Z79.4 Long term (current) use of insulin; Z79.82 Long term (current) use of aspirin; Z79.85 Long-term (current) use of injectable non-insulin antidiabetic drugs; E78.5 Hyperlipidemia, unspecified; E11.9 Type 2 diabetes mellitus without complications
CPT/HCPCS: 74176; 96372; 99284; J0696; J9999

== ENCOUNTER → 2025-01-04 15:08 | Outpatient (BNVA) | payer MEDICARE, SELFPAY | PROVIDERS: PCP Family Medicine; Visit Provider Family Medicine | DX: R39.9 Unspecified symptoms and signs involving the genitourinary system (principal) | CPT/HCPCS: 81000; 87086 ==

== ENCOUNTER → 2025-01-24 11:34 | Outpatient (BNVA) | payer MEDICARE, SELFPAY | PROVIDERS: PCP Family Medicine; Visit Provider Family Medicine | DX: E11.65 Type 2 diabetes mellitus with hyperglycemia (principal); Z79.4 Long term (current) use of insulin | CPT/HCPCS: 83036 ==

== ENCOUNTER → 2025-04-18 12:37 | Outpatient (BNVA) | payer MEDICARE, SELFPAY | PROVIDERS: PCP Family Medicine; Visit Provider Emergency Medicine | DX: J06.9 Acute upper respiratory infection, unspecified (principal) | CPT/HCPCS: 87400; 87426 ==